=== PATIENT | female | born 1945 | race Caucasian/White ===

== ENCOUNTER → 2016-07-15 | Day surgery (SDC) | payer MEDICARE, OTHER ==
[~2016-07-15] MED LIST: ALBU0.08 NEB; AMBI10TA PO; BUDE.25I NEB; BUDE0.25 NEB; BUPIVACAINE HCL PF 0.5% 30 ML VIAL ONE; CALC1TAB12 PO; CARD180C5 PO; GABA300C5 PO; GLIM4TAB PO; GLUC15009 PO; HYDR-3535 PO; ISOS60TA PO; LOSA25TA PO; MELO-1 PO; METF1000 PO; METH500T3 PO; OMEP20TA PO; PROPOFOL 200 MG/20 ML AMP IV ONE; PROZ20CA11 PO; ROSU10 PO; TEMA15CA PO; TRIAMCINOLONE ACETONIDE 40 MG/ML VIAL I-ARTICULR ONE; VITA100018 PO; VITATAB11 PO
--- NOTE | 2016-07-19 06:15 | M6 ---
cc: KASIA SHARIF M.D. DATE: 07/15/2016 DATE OF : 1945 PROCEDURE Fluoroscopically guided injection bilateral cervical facet joints (bilateral C3-4, C4-5 and C5-6 facet joints). History and physical was completed and signed. Consent was signed. Procedure site was marked. Medications were listed and reconciled. Pain score was recorded. Allergies were noted. Time out was taken. Fluoroscopy time was recorded where applicable. Sedation was administered or directed by Dr. Sharif. The patient was given oxygen. The patient was monitored by a registered nurse. Total procedure time was greater than 15 minutes. PROCEDURE NOTE: IV was started, blood pressure cuff, pulse oximeter and EKG were applied. The patient was placed in the prone position on a Roger table sedated with small amounts of propofol titrated to effect. Vital signs were monitored and remained stable throughout the procedure. Cervical area was prepped with alcohol and 10% Betadine solution and draped with sterile drapes. Fluoroscopy was used to visualize the bilateral cervical facet joints at C3-4, C4-5 and C5-6. Separate sterile 3-1/2-inch 25-gauge spinal needles were advanced into these joints under fluoroscopic guidance. There was negative aspiration for blood or any other type of fluid. At each location the patient was given 1 mL of 0.5% Marcaine which contained 10 mg of Kenalog. Following the procedure the patient was taken to the recovery room with stable vital signs neurologically intact. She will be evaluated immediately and with followup to determine if she has a subjective decrease in her usual pain and a corresponding objective increase in her functional capabilities. W. MD DAVI Corado/MOISES /8:23 AM /6:07 AM
== END | disposition home or self-care (01) ==
LOC: PHSDC 07:11
PROVIDERS: ATTEND Pain Medicine Interventional Pain Medicine
DX: M54.2 Cervicalgia (principal)
CPT/HCPCS: 64490; 64491; 64492; 99152; J3301

== ENCOUNTER → 2016-10-15 | Day surgery (SDC) | payer MEDICARE, OTHER ==
[~2016-10-15] MED LIST changes: -BUDE0.25 NEB; +MEPERIDINE HCL 50 MG/ML VIAL ONE; +methylPREDNISolone ACETATE 40 MG/ML VIAL I-ARTICULR ONE
--- NOTE | 2016-10-19 08:37 | M6 ---
cc: KASIA SHARIF M.D. DATE 10/15/2016 DATE OF 1945 PROCEDURE Fluoroscopically guided right hip joint injection. History and physical was completed and signed. Consent was signed. Procedure site was marked. Medications were listed and reconciled. Pain score was recorded. Allergies were noted. Time out was taken. Fluoroscopy time was recorded where applicable. Sedation was administered or directed by Dr. Sharif. The patient was given oxygen. The patient was monitored by a registered nurse. Total procedure time was greater than 15 minutes. PROCEDURE NOTE IV was started. Blood pressure cuff, pulse oximeter and EKG were applied. The patient was placed in the supine position on a Roger table, sedated with small amounts of propofol titrated to effect. Vital signs were monitored and remained stable throughout the procedure. The right hip area was prepped with alcohol and 10% Betadine solution and draped with sterile drapes. Fluoroscopy was used to visualize the acetabulum. Then a 5-inch, 22-gauge spinal needle was advanced into the cephalad portion of the acetabulum under fluoroscopic guidance. There was negative aspiration for blood or any other type of fluid and at that location the patient was given 3 mL of 0.5% Marcaine, 20 mg of Depo-Medrol and 20 mg of Kenalog. Following this the patient was taken to the recovery room with stable vital signs, neurologically intact. She will be evaluated immediately and with followup to determine if she has a subjective decrease her usual pain and a corresponding increase in her activity. WMD DAVI Roth/JAVIER /10:04 AM /8:39 AM
== END | disposition home or self-care (01) ==
LOC: PHSDC 08:34
PROVIDERS: ATTEND Pain Medicine Interventional Pain Medicine
DX: M25.551 Pain in right hip (principal); Z88.0 Allergy status to penicillin
CPT/HCPCS: 20610; 99152; J1030; J2175; J3301

== ENCOUNTER 2016-12-03 14:09 | Inpatient (IN) | payer MEDICARE, OTHER ==
[~2016-12-03] VITALS: Ht 162.6 cm; Wt 98.4 kg
[~2016-12-03 14:09] MED LIST changes: -BUPIVACAINE HCL PF 0.5% 30 ML VIAL ONE; -LOSA25TA PO; -MEPERIDINE HCL 50 MG/ML VIAL ONE; -PROPOFOL 200 MG/20 ML AMP IV ONE; -TRIAMCINOLONE ACETONIDE 40 MG/ML VIAL I-ARTICULR ONE; -VITATAB11 PO; -methylPREDNISolone ACETATE 40 MG/ML VIAL I-ARTICULR ONE
[2016-12-07] MEDS ORDERED: LOSA50TA PO (09:28)
[2016-12-16] MEDS ORDERED: CHLORHEXIDINE GLUCONATE 2 % 1 PACK (2 CLOTHS) TOPICAL PRN (07:30)
[2016-12-16] MEDS ORDERED: INSULIN HUMAN REGULAR 1,000 UNITS/10 ML VIAL SQ PRN (07:30)
[2016-12-16] MEDS ORDERED: SODIUM CHLORID 0.9% 500 ML IV PRN (07:30)
[2016-12-16] MEDS ORDERED: POVIDONE IODINE 5% (ANTISEPSIS KIT) 4 APPLICATIONS EACH NARE PRN (07:30)
[2016-12-16] MEDS ORDERED: METOPROLOL TARTRATE 25 MG TAB PO PRN (07:30)
[2016-12-16] MEDS ORDERED: LACTATED RINGER'S 1000 ML IV PRN (07:30)
[2016-12-16] MEDS ORDERED: EXPAREL PERI-ARTICULAR INJECTION (TOTAL VOL. 60 ML) P-ARTICULR SCH ×2 (07:45)
[2016-12-16] MEDS ORDERED: POVIDONE IODINE 7.5% SCRUB 118 ML BOTTLE TOPICAL SCH (07:45)
[2016-12-16] MEDS ORDERED: DEXAMETHASONE SOD PHOS 20 MG/5 ML VIAL IV SCH (07:45)
[2016-12-16] MEDS ORDERED: TRANEXAMIC ACID INJ 906 MG in SODIUM CHLORIDE 0.9% INJ 100 ML IV SCH ×2 (07:45→11:45)
[2016-12-16] MEDS ORDERED: CLINDAMYCIN 900 MG/NS 100 ML IV SCH ×2 (07:45)
[2016-12-16] MEDS ORDERED: VANCOMYCIN 1000 MG/NS 250 ML (for <70 kg) IV SCH ×2 (07:45)
[2016-12-16 08:00] VITALS: BP 121/56; PULSE 97; RESP 18; TEMP 98.9; O2SAT 97
[2016-12-16] MEDS ORDERED: FAMOTIDINE 20 MG/2 ML VIAL ONE (09:25)
[2016-12-16] MEDS ORDERED: ACETAMINOPHEN 1000 MG/100 ML VIAL IV ONE (09:25)
[2016-12-16] MEDS ORDERED: MIDAZOLAM HCL 2 MG/2 ML VIAL ONE (09:32)
[2016-12-16] MEDS ORDERED: KETAMINE HCL 500 MG/5 ML VIAL ONE (09:37)
[2016-12-16] MEDS ORDERED: HYDROmorphone HCL PF 2 MG/ML VIAL ONE (09:38)
[2016-12-16] MEDS ORDERED: GENTAMICIN SULFATE 80 MG/2 ML VIAL ONE (09:41)
[2016-12-16] MEDS ORDERED: PERC10TA27 PO (11:44)
[2016-12-16] MEDS ORDERED: ENOX40P SQ (11:44)
[2016-12-16] MEDS ORDERED: ASPI325T PO (11:44)
[2016-12-16] MEDS ORDERED: ALUMINUM/MAGNESIUM/SIMETH 30 ML CUP PO PRN (11:45)
[2016-12-16] MEDS ORDERED: diphenhydrAMINE HCL 50 MG/ML VIAL IV PRN (11:45)
[2016-12-16] MEDS ORDERED: NALOXONE HCL 0.4 MG/ML AMP IV PRN (11:45)
[2016-12-16] MEDS ORDERED: RESP: ALBUTEROL 2.5 MG/3 ML NEB (PRN) NEB (11:45)
[2016-12-16] MEDS ORDERED: Post-op Orders (for Pharmacy) MISC XX ONE (11:45)
[2016-12-16] MEDS ORDERED: ZOLPIDEM TARTRATE 5 MG TAB PO PRN (11:45)
[2016-12-16] MEDS ORDERED: SODIUM CHLORIDE 0.9% FLUSH 5 ML FLUSH IVF PRN (11:45)
[2016-12-16] MEDS ORDERED: BISACODYL 10 MG SUPP RECTAL PRN (11:45)
--- NOTE | 2016-12-16 11:47 | PD.OP ---
cc: Ceasar Morfin MD Operative Report Date of Surgery: Dec 16, 2016 Preoperative Diagnosis: Right hip severe osteoarthritis Postoperative Diagnosis: Same Procedure: Right total hip arthroplasty Anesthesia: Gen. Surgeon: Ceasar Morfin Marine Electrician Apprentice(s): BRENDAN Adkins The surgical procedure was assisted by my Advanced Registered Nurse Practitioner. My CERTIFIED ADAPTED PHYSICAL EDUCATOR presence was necessary throughout this case for the manipulation and positioning of the surgical extremity. My CERTIFIED ADAPTED PHYSICAL EDUCATOR was assisting me throughout the duration of this procedure. The skill set of an Advance Registered Nurse Practitioner was medically necessary to complete this procedure. During the surgical case, the health and safety tech was working at the back table and the Advance Registered Nurse Practitioner was directly assisting me. Operation and Findings: IMPLANT DESCRIPTION: 1. [place] Gription Cup, acetabular size 48. 2. [place] AltrX polyethylene, neutral. 4. [place] femoral stem size 10, no collar, standard offset. 5. Femoral head/neck metal, 32, +1. ESTIMATED BLOOD LOSS: 150 cc. JUSTIFICATION FOR PROCEDURE: The patient has end-stage osteoarthritis to the hip. There is an attached conservative measures pathway form in the chart that describes the nonoperative measures that were undertaken prior to consideration of surgical management. The patient understood the risks and benefits of surgical management. See my office notes for further details. PROCEDURE: The patient was brought back to the operative theatre. Adequate anesthesia was obtained. The patient received intravenous clindamycin and vancomycin. The patient was carefully placed on the operative table. The lower extremity was prepped and draped in the usual sterile fashion. Fluoroscopic images were obtained. We made a standard anterior incision over the hip. We dissected through the TFL fascia, exposing the anterior capsule. Arthrotomy was performed in a T-shaped fashion. The capsule was tagged with a #2 FiberWire. End-stage arthritis was identified. Osteotomy was performed through the femoral neck exposing the acetabulum. Remnants of the labrum were resected and osteophytes were removed. We sequentially reamed the acetabulum. We trialed the hip and placed the final cup into position. This was done under fluoroscopic guidance to obtain the appropriate inclination and anteversion. A manhole cover was placed into the acetabular component. We then placed the final polyethylene into position and confirmed that it was well seated. Capsular attachments on the calcar and the inner aspect of the greater trochanter were resected. On the proximal aspect of the femur we used a rongeur , box osteotome, canal finder, sequential broaches and lateralizing rasp. We calcar planed the proximal femur. Then thoroughly irrigated the wound. We trialed the hip with the appropriate size stem. We placed the final stem in to position and trialed again. The hip was stable while it was externally rotated 70 degrees when the leg was lowered to the floor. The final head was applied, and final fluoroscopic images were obtained. The wound was thoroughly irrigated again. Interarticular injection of liposomal bupivacaine was given. The capsule was closed with #2 FiberWire and #1 Vicryl. The deep fascia was closed with a #2 Stratafix, followed by 2-0 Vicryl in the skin and lexi. Postop plan is to weight-bear as tolerated. DVT prophylaxis will be performed with SCDdheeraj, WAYNE delgado, early mobilization, and and Lovenox followed by aspirin. Ceasar Morfin MD Dec 16, 2016 11:46
[2016-12-16] MEDS ORDERED: ZOFR4TAB PO (11:48)
[2016-12-16] MEDS ORDERED: NEOSTIGMINE 3 MG/3 ML SYR IV ONE (12:00)
[2016-12-16] MEDS ORDERED: ONDANSETRON HCL 4 MG/2 ML VIAL IV PUSH ONE (12:00)
[2016-12-16] MEDS ORDERED: PROPOFOL 200 MG/20 ML AMP IV ONE (12:00)
[2016-12-16] MEDS ORDERED: ePHEDrine/NS 25 MG/5 ML SYR IV ONE (12:00)
[2016-12-16] MEDS ORDERED: PHENYLEPH/NS 1000 MCG/10 ML SYR IV ONE (12:00)
[2016-12-16] MEDS ORDERED: LACTATED RINGER'S 1000 ML INJ 1,000 ML IV ONE (12:00)
[2016-12-16] MEDS ORDERED: *RESP: ALBUTEROL 2.5 MG/3 ML NEB (PRN) PERIprocedural Use ONLY NEB ONE (12:15)
[2016-12-16] MEDS ORDERED: fentaNYL CITRATE 250 MCG/5 ML AMP ONE ×2 (12:22)
[2016-12-16] MEDS ORDERED: *morphine SULFATE 8 MG/ML PERIprocedure ONLY ONE ×3 (12:40→13:14)
[2016-12-16] MEDS ORDERED: DO NOT ADM ANY ANTICOAGULANT DRUGS PRN (12:45)
--- NOTE | 2016-12-16 12:45 | RADRPT ---
EXAM DATE/TIME: 12/16/2016 10:24 [facility] COMPARISON: No previous studies available for comparison. INDICATIONS : Right total hip arthroplasty. MEDICAL HISTORY : Hypertension. Chronic obstructive pulmonary disease. SURGICAL HISTORY : None. ENCOUNTER: Initial ACUITY: 1 day PAIN SCORE: Non-responsive. LOCATION: Right hip FINDINGS: Anatomic alignment in the AP projection on fluoroscopic spot film. CONCLUSION: Anatomic alignment Adam Vásquez MD FACR on December 16, 2016 at 12:43 Board Certified Radiologist. This report was verified electronically.
[2016-12-16] MEDS: SODIUM CHLOR 0.9% 1000 ML INJ 1,000 ML IV SCH ×2 (12:55→21:40)
[2016-12-16] MEDS ORDERED: GLUCAGON 1 MG/ML VIAL OTHER PRN (13:00)
[2016-12-16] MEDS ORDERED: DEXTROSE 50% IN WATER 50 ML VIAL(D50) IV PRN (13:00)
--- NOTE | 2016-12-16 13:13 | RADRPT ---
EXAM DATE/TIME: 12/16/2016 12:27 [facility] COMPARISON: No previous studies available for comparison. INDICATIONS : Post-op total right hip arthroplasty. MEDICAL HISTORY : Diabetes mellitus type II. SURGICAL HISTORY : None. ENCOUNTER: Initial ACUITY: 1 day PAIN SCORE: 10/10 LOCATION: Right hip. FINDINGS: The patient is status post a total hip arthroplasty with a bipolar prosthesis. Prosthesis is well-sea deena. Alignment is anatomic. A fracture is not appreciated. CONCLUSION: Anatomic alignment. Adam Vásquez MD FACR Board Certified Radiologist. This report was verified electronically.
--- NOTE | 2016-12-16 13:14 | RADRPT ---
EXAM DATE/TIME: 12/16/2016 12:26 [facility] COMPARISON: CHEST PA & LAT, December 07, 2016, 11:31. INDICATIONS : Evaluate for aspiration. MEDICAL HISTORY : Diabetes mellitus type II. SURGICAL HISTORY : None. ENCOUNTER: Initial ACUITY: 1 day PAIN SCORE: 0/10 LOCATION: chest FINDINGS: The lungs are under aerated without other consolidation, congestive failure or pleural effusion. The portion of the bony skeleton visualized is unremarkable. CONCLUSION: Unaerated otherwise negative. Adam Vásquez MD FACR on December 16, 2016 at 13:12 Board Certified Radiologist. This report was verified electronically.
[2016-12-16] MEDS ORDERED: *HYDROmorphone PF 1 MG VIAL PERIprocedural Use ONLY ONE ×2 (13:34→14:19)
--- NOTE | 2016-12-16 14:13 | HHI.DCPOC ---
Discharge Care Plan Diagnosis: (1) Osteoarthritis of right hip (2) Status post total hip replacement, right Your Health Problems Are: Difficulty with ADL Goals to Promote Your Health * To prevent worsening of your condition and complications * To maintain your health at the optimal level Directions to Meet Your Goals Take your medications as prescribed Follow your dietary instruction Follow activity as directed Keep your appointments as scheduled Take your immunizations and boosters as scheduled If your symptoms worsen call your PCP, if no PCP go to Urgent Care Center or Emergency Room Smoking is Dangerous to Your Health. Avoid second hand smoke Call the 24-hour hour crisis hotline for domestic abuse at Esteban Simons Dec 16, 2016 14:13
--- NOTE | 2016-12-16 14:14 | HHI.FF ---
Face to Face Verification Diagnosis: (1) Osteoarthritis of right hip (2) Status post total hip replacement, right Physical Therapy Gait training, Transfer training, bed to chair Hip: Total hip Right LE Weight Bearing: WB as tolerated Right LE Range of Motion: Active ROM Nursing Nursing: Miriam teaching, Dressing changes Dressing Changes: Daily dressing change I have seen patient Nimisha Ulloa on 12/16/16. My clinical findings support the need for the requested home health care services because: Limited ability to care for self High risk of falls I certify that my clinical findings support that this patient is homebound because: Post-op weakness Unsteady gait/balance Esteban Simons Dec 16, 2016 14:14
[2016-12-16] MEDS ORDERED: WALKER WHEELS/F1 MIS (14:15)
[2016-12-16] MEDS ORDERED: COMMODE 3-IN-11 MIS (14:15)
[2016-12-16] MEDS ORDERED: PANTOPRAZOLE SOD 20 MG DELAYED RELEASE TAB PO PRN (15:00)
[2016-12-16] MEDS: ONDANSETRON HCL 4 MG/2 ML VIAL IVP PRN (15:05)
--- NOTE | 2016-12-16 16:05 | PD.CONS ---
HPI Service [facility] Consult Requested By Dr. Ceasar Morfin Reason for Consult Medical management Primary Care Physician Tawanna Davis Diagnoses: History of Present Illness Written by Heena Pinto PA-C acting as scribe for Dr. Esteban on 12/16/16 at 15:42. This is a 71-year-old female presenting with chronic right hip pain affecting her activities of daily living. She has osteoarthritis and failed attempts at outpatient therapy and underwent a right total hip replacement performed by Dr. Morfin who requested consultation to evaluate and manage multiple medical conditions. Anesthesia records reviewed. Patient is hemodynamically stable. Patient was cleared preoperatively by cardiology, pulmonology and medicine. Patient has history of coronary artery disease and undergone a previous cardiac stent placement. Additionally, patient gives a history of COPD but denies any previous hospitalizations due to exacerbations. She denies using oxygen at home. She has hypertension which is controlled with a single agent. She has dyslipidemia and diabetes. She also has a history of restless leg syndrome takes gabapentin. Patient had a recent echocardiogram done 12/04/16 which revealed normal systolic function with EF of 55-60%. She also underwent a myocardial perfusion study on 12/04/16 which showed a fixed defect and no reversible ischemia. Preoperatively she was noted to have some mild leukocytosis. She is a history of chronic pain for which she takes Narco daily. In PACU, noted to have emesis with tightness and wheezing. She underwent a breathing treatment and had a stat chest x-ray which was unremarkable per report. At present, patient has no recollection of vomiting. She denies any complaints of breathing difficulties. She denies any history of swallowing abnormalities. She complains of "feeling woozy" as well as right hip pain. Following surgery, her blood sugar was 247. All other systems are reviewed and are negative. Review of Systems Except as stated in HPI: all other systems reviewed are Neg Past Family Social History Allergies: Coded Allergies: penicillin G (Unverified Allergy, Severe, Anaphylaxis, 12/16/16) swelling hives Past Medical History Osteoarthritis CAD Hypertension Diabetes COPD Dyslipidemia Restless leg syndrome Depression Chronic narcotic use GERD Past Surgical History Cardiac stent Cataract surgery Tonsillectomy Appendectomy Cholecystectomy Back surgery Bilateral tubal ligation Reported Medications Losartan 50 mg daily Gabapentin 300 mg by mouth daily at bedtime Prozac 20 mg daily Ambien 10 mg by mouth daily at bedtime when necessary Temazepam 15 mg by mouth daily at bedtime when necessary Nebulizer treatments as needed Metformin thousand grams by mouth twice a day Diltiazem 180 mg by mouth daily Methocarbamol 500 mg by mouth daily Pulmicort 0.25 mg neb treatments daily Crestor 10 mg by mouth daily at bedtime Isosorbide 60 mg by mouth daily at bedtime Mobic 15 mg by mouth daily Lortab tens 325 mg 1 by mouth every 6 hours as needed Omeprazole 20 mg daily Glimepiride 4 mg by mouth twice a day Vitamin D 3000 units by mouth daily Active Ordered Medications Current Medications Medications (Trade) Dose Ordered Sig/Elysia Route Start Time Stop Time Status Last Admin Povidone Iodine 1 applic 1 applic ONCE TOPICAL 12/16/16 07:45 12/19/16 07:44 Tranexamic Acid 906 mg/Sodium Chloride 109.06 ml @ 200 mls/ hr ONCE IV 12/16/16 07:45 12/17/16 07:44 12/16/16 10:15 (Exparel Pf 1.3% Inj/NS Inj) 60 ml @ 120 mls/hr ONCE P-ARTICULR 12/16/16 07:45 12/17/16 07:44 12/16/16 10:44 (Cardizem Cd) 180 mg DAILY PO 12/17/16 09:00 (PROzac) 20 mg DAILY PO 12/17/16 09:00 (Neurontin) 300 mg HS PO 12/16/16 21:00 (Amaryl) 4 mg BIDAC PO 12/16/16 16:00 (Imdur) 60 mg HS PO 12/16/16 21:00 (Cozaar) 50 mg DAILY PO 12/17/16 09:00 (Glucophage) 1,000 mg BIDPC PO 12/16/16 18:00 (Robaxin) 500 mg DAILY PO 12/17/16 09:00 (Restoril) 15 mg HS PRN PO 12/16/16 21:00 (Ambien) 10 mg HS PRN PO 12/16/16 21:00 (Protonix) 20 mg DAILY PRN PO 12/16/16 15:00 Atorvastatin Calcium 20 mg 20 mg HS PO 12/16/16 21:00 (NS 1000 ml Inj) 1,000 ml @ 100 mls/hr Q10H IV 12/16/16 11:40 8/16/17 12:55 (NS Flush) 2 ml UNSCH PRN IVF 12/16/16 11:45 IV Flush 2 ml 2 ml BID IVF 12/16/16 21:00 (Cleocin Inj/NS Inj) 106 ml @ 212 mls/hr Q8H IV 12/16/16 17:00 12/17/16 09:29 (Decadron Inj) 10 mg ONCE ONCE IV 12/17/16 07:45 12/17/16 07:46 (Lovenox Inj) 40 mg Q24H SQ 12/17/16 11:00 12/26/16 11:01 (Theragran M Tab) 1 tab BID PO 12/17/16 21:00 02/15/17 20:59 (Zofran Inj) 4 mg Q6H PRN IVP 12/16/16 11:45 12/16/16 15:05 (Colace) 100 mg BID PO 12/17/16 21:00 (Mag-Al Plus Susp Liq) 30 ml Q6H PRN PO 12/16/16 11:45 (Dulcolax Supp) 10 mg DAILY PRN RECTAL 12/16/16 11:45 (Milk Of Magnesia Liq) 30 ml DAILY PRN PO 12/16/16 11:45 (Narcan Inj) 0.4 mg UNSCH PRN IV 12/16/16 11:45 (Benadryl Inj) 25 mg Q6H PRN IV 12/16/16 11:45 (Morphine Inj) 2 mg Q3H PRN IV PUSH 12/16/16 11:45 (Percocet 10-325 Mg) 1 tab Q4H PRN PO 12/16/16 11:45 (Percocet 10-325 Mg) 2 tab Q4H PRN PO 12/16/16 11:45 Miscellaneous Information ALL NURSING DEPARTME... UNSCH PRN .XX 12/16/16 12:45 12/17/16 12:44 (D50w (Vial) Inj) 50 ml UNSCH PRN IV 12/16/16 13:00 (Glucagon Inj) 1 mg UNSCH PRN OTHER 12/16/16 13:00 Family History Heart disease Social History Patient has a [id number]-ganm history. Denies any alcohol use. Physical Exam Vital Signs Vital Signs Date Time Temp Pulse Resp B/P Pulse Ox O2 Delivery O2 Flow Rate FiO2 12/16/16 08:00 98.9 97 18 121/56 97 Physical Exam GENERAL: This is a well-nourished, well-developed patient, in no apparent distress. Awake and alert. SKIN: No rashes, ecchymoses or lesions. Cool and dry. HEAD: Atraumatic. Normocephalic. No temporal or scalp tenderness. EYES: Pupils equal round and reactive. Extraocular motions intact. No scleral icterus. No injection or drainage. ENT: Nose without bleeding or purulent drainage. Throat without erythema, tonsillar hypertrophy or exudate. Uvula midline. Airway patent. NECK: Trachea midline. No lymphadenopathy. Supple, nontender, no meningeal signs. CARDIOVASCULAR: Regular rate and rhythm without murmurs, gallops, or rubs. RESPIRATORY: Decreased breath sounds but clear to auscultation. No wheezes, rales, or rhonchi. GASTROINTESTINAL: Abdomen soft, non-tender, nondistended. No hepato-splenomegaly , or palpable masses. No guarding. MUSCULOSKELETAL: Extremities without clubbing, cyanosis, or edema. NEUROLOGICAL: Awake and alert. Able to move all extremities. Motor and sensory grossly intact distally. Normal speech. Laboratory Laboratory Tests Test 12/16/16 08:04 Blood Type O NEGATIVE Antibody Screen NEGATIVE Blood Bank Comment Imaging Last Impressions Hip and Pelvis X-Ray 12/16/16 1140 Signed Impressions: Service Date/Time: Friday, December 16, 2016 12:27 - CONCLUSION: Anatomic alignment. Adam Vásquez MD Hip X-Ray 12/16/16 0000 Signed Impressions: Service Date/Time: Friday, December 16, 2016 10:24 - CONCLUSION: Anatomic alignment Adam Vásquez MD FACR Chest X-Ray 12/16/16 0000 Signed Impressions: Service Date/Time: Friday, December 16, 2016 12:26 - CONCLUSION: Unaerated otherwise negative. Adam Vásquez MD FACR Assessment and Plan Assessment and Plan 71-year-old female presenting with chronic right hip pain affecting her activities of daily living. She has osteoarthritis and failed attempts at outpatient therapy and underwent a right total hip replacement performed by Dr. Morfin who requested consultation to evaluate and manage multiple medical conditions. Anesthesia records reviewed. Patient is hemodynamically stable. In PACU, patient had an emesis as well as wheezing and chest tightness. She was treated with a breathing treatment and stat chest x-ray was obtained which was unremarkable. We will continue postoperative care to include physical therapy, wound care, incentive spirometry, DVT prophylaxis with Lovenox ( followed by aspirin 325 mg) and pain management with Percocet and IV morphine. Osteoarthritis of the right hip failed outpatient therapy status post right total hip replacement Pain management with Percocet and IV morphine PT eval/tx Hypertension. Stable Resume patient's home dose of diltiazem 180 mg daily, Cozaar 50 mg daily and Imdur 60mg daily Monitor BP CAD. Stable Previous cardiac stent implantation 12/04/16 echocardiogram revealing normal systolic function with EF of 55-60% and myocardial perfusion study showing fixed defect with no reversible ischemia No complaints of chest pain at this time Will resume patient's aspirin once cleared by surgery Diabetes mellitus Resume patient's home medication of metformin 1000 milligrams twice a day and Amaryl 4mg BID Accu-Chek Insulin sliding scale Diabetic diet COPD. Stable Resume patient's home dose of Pulmicort neb daily Monitor respiratory status Dyslipidemia Resume patient's home dose of Lipitor 20 mg nightly Restless leg syndrome Resume patient's home dose of gabapentin 300 mg daily Depression Resume patient's home dose of Prozac 20 mg daily GERD Resume patient's home dose of Omeprazole 20 mg daily DVT prophylaxis Lovenox 40 mg subcutaneous. Patient is to begin aspirin 325 mg daily after Lovenox is completed. Discussed Condition With Patient and nursing staff This note was transcribed by eleonora Pinto PA-C . I, Dr. Jimmy Esteban personally performed the history, physical exam, and medical decision making; and confirmed the accuracy of the information in the transcribed note. Authenticated by Dr. Jimmy Esteban on 12/16/16 at 15:46 Heena Pinto Dec 16, 2016 16:05 Jimmy Esteban MD Dec 16, 2016 17:43
[2016-12-16] MEDS: INSULIN ASPART SUPPLEMENTAL SCALE SQ SCH ×2 (16:55→21:00)
[2016-12-16] MEDS: oxyCODONE/ACETAMINOPHEN 10 MG/325 MG TAB PO PRN (17:20)
[2016-12-16] MEDS: MORPHINE SULFATE 4 MG/ML INJ IV PUSH PRN (17:20)
[2016-12-16] MEDS: CLINDAMYCIN INJ 900 MG in SODIUM CHLORIDE 0.9% INJ 100 ML IV SCH (17:30)
[2016-12-16 20:15] VITALS: BP 106/67; PULSE 102; RESP 18; TEMP 98.2; O2SAT 96
[2016-12-16] MEDS: SODIUM CHLORIDE 0.9% FLUSH 5 ML FLUSH IVF SCH (21:00)
[2016-12-16] MEDS: ATORVASTATIN 20 MG TAB PO SCH (21:02)
[2016-12-16] MEDS: ISOSORBIDE MONONITRATE 60 MG TAB PO SCH (21:02)
[2016-12-16] MEDS: metFORMIN HCL 500 MG TAB PO SCH (21:02)
[2016-12-16] MEDS: GABAPENTIN 300 MG CAP PO SCH (21:02)
[2016-12-16] MEDS: TEMAZEPAM 15 MG CAP PO PRN (21:32)
[2016-12-16] MEDS: ZOLPIDEM TARTRATE 10 MG TAB PO PRN (21:32)
[2016-12-17] VITALS (7 sets, daily range): BP systolic 101–142; BP diastolic 60–74; PULSE 96–110; RESP 17–18; TEMP 96.7–98.3; O2SAT 92–98
[2016-12-17] MEDS: CLINDAMYCIN INJ 900 MG in SODIUM CHLORIDE 0.9% INJ 100 ML IV SCH ×2 (00:51→08:45)
[2016-12-17] MEDS: oxyCODONE/ACETAMINOPHEN 10 MG/325 MG TAB PO PRN ×3 (03:22→14:00)
[2016-12-17] MEDS: MORPHINE SULFATE 4 MG/ML INJ IV PUSH PRN ×3 (05:35→19:52)
[2016-12-17] MEDS: INSULIN ASPART SUPPLEMENTAL SCALE SQ SCH ×4 (07:00→20:05)
[2016-12-17 07:40] LABS: HEMATOCRIT 32.4 % (35.0-46.0); MEAN CELL VOLUME 81.4 FL (80.0-100.0); MEAN CORPUSCULAR HEMOGLOBIN 25.7 PG (27.0-34.0); MEAN CORPUSCULAR HGB CONC 31.6 % (32.0-36.0); PLATELET COUNT 326 TH/MM3 (150-450); RED BLOOD COUNT 3.98 MIL/MM3 (4.00-5.30); RED CELL DISTRIBUTION WIDTH 16.6 % (11.6-17.2); REVIEW FLAG FINAL
[2016-12-17] MEDS: SODIUM CHLOR 0.9% 1000 ML INJ 1,000 ML IV SCH ×2 (07:40→17:40)
[2016-12-17] MEDS ORDERED: DEXAMETHASONE SOD PHOS 20 MG/5 ML VIAL IV ONE (07:45)
[2016-12-17] MEDS: RESP: BUDESONIDE 0.25 MG/2 ML NEB NEB SCH (08:00)
[2016-12-17] MEDS: FLUoxetine HCL 20 MG CAP PO SCH (08:44)
[2016-12-17] MEDS: METHOCARBAMOL 500 MG TAB PO SCH (08:44)
[2016-12-17] MEDS: DILTIAZEM-CD 180 MG CAP ER PO SCH (08:44)
[2016-12-17] MEDS: LOSARTAN 50 MG TAB PO SCH (08:44)
[2016-12-17] MEDS: GLIMEPIRIDE 4 MG TAB PO SCH ×2 (08:45→17:04)
[2016-12-17] MEDS: metFORMIN HCL 500 MG TAB PO SCH ×2 (08:45→17:04)
[2016-12-17] MEDS: SODIUM CHLORIDE 0.9% FLUSH 5 ML FLUSH IVF SCH ×2 (08:45→20:04)
[2016-12-17] MEDS: ENOXAPARIN SODIUM 40 MG/0.4 ML SYRINGE SQ SCH (11:38)
--- NOTE | 2016-12-17 11:53 | PD.ORT.PN ---
Subjective Post Op Day #: 1 Subjective Remarks The patient is OOB in chair but is having a difficult time transferring and ambulating. Patient's Silverio is out but she has not voided. Objective Vitals Vital Signs Date Time Temp Pulse Resp B/P Pulse Ox O2 Delivery O2 Flow Rate FiO2 12/17/16 07:21 96.7 99 18 117/74 98 12/17/16 04:09 97.0 96 18 120/68 98 12/17/16 00:15 97.4 100 18 102/65 98 12/16/16 20:15 98.2 102 18 106/67 96 12/16/16 18:00 98.3 107 14 102/53 95 Nasal Cannula 3 12/16/16 17:00 112 22 115/67 94 Nasal Cannula 3 12/16/16 16:00 112 22 109/56 94 Nasal Cannula 3 12/16/16 15:00 114 13 109/56 95 Nasal Cannula 3 12/16/16 14:00 114 14 110/53 94 Nasal Cannula 3 12/16/16 13:30 111 14 110/57 93 Nasal Cannula 3 12/16/16 13:15 110 21 120/57 94 Nasal Cannula 3 12/16/16 13:00 110 28 150/63 95 Nasal Cannula 3 12/16/16 12:45 110 24 130/90 98 Nasal Cannula 3 12/16/16 12:30 114 29 175/77 97 Simple Mask 6 12/16/16 12:15 100 16 141/67 92 Simple Mask 6 12/16/16 12:07 98.3 93 16 140/71 93 Simple Mask 6 I/O 12/16/16 12/16/16 12/16/16 12/17/16 12/17/16 12/17/16 07:00 15:00 23:00 07:00 15:00 23:00 Intake Total 1100 ml 954 ml 970 ml Output Total 400 ml 450 ml 300 ml Balance 700 ml 504 ml 670 ml Intake Oral 340 ml 120 ml IV Total 614 ml 850 ml Other 1100 ml Output Urine Total 200 ml 450 ml 300 ml Estimated Blood Loss 200 ml # Bowel Movements 0 0 Result Diagram: 12/17/16 0615 Imaging Last 24 hours Impressions Hip and Pelvis X-Ray 12/16/16 1140 Signed Impressions: Service Date/Time: Friday, December 16, 2016 12:27 - CONCLUSION: Anatomic alignment. Adam Vásquez MD Procedures Right SANDIP Objective Remarks Dressing changed today with no drainage. Incision is well approximated. No redness or s/s of infection. EHL/TA/G intact. 2+ pedal pulse. No calf swelling or tenderness. + SILT. Assessment & Plan Ortho Post Op Day #: 1 Problem List: Assessment and Plan POD #1: Right SANDIP 1. WBAT RLE 2. Lovenox followed by ASA for DVT prophylaxis 3. Ice to the right hip PRN 4. Anticipatory discharge home with home health on Wednesday or Wednesday. 5. F/U with Dr. Morfin or BRENDAN Mosley in the office as previously scheduled. Esteban Simons Dec 17, 2016 11:53
--- NOTE | 2016-12-17 13:05 | HHI.PR ---
Subjective Remarks Follow-up on patient with osteoarthritis status post right total hip replacement. Patient seen and examined today. Patient reports she is doing well overall. Pain is controlled at present. She denies any fever or chills. She denies any nausea, vomiting or abdominal pain. Denies chest pain or shortness of breath. Objective Vitals Vital Signs Date Time Temp Pulse Resp B/P Pulse Ox O2 Delivery O2 Flow Rate FiO2 12/17/16 11:40 96.8 102 18 101/60 94 12/17/16 07:21 96.7 99 18 117/74 98 12/17/16 04:09 97.0 96 18 120/68 98 12/17/16 00:15 97.4 100 18 102/65 98 12/16/16 20:15 98.2 102 18 106/67 96 12/16/16 18:00 98.3 107 14 102/53 95 Nasal Cannula 3 12/16/16 17:00 112 22 115/67 94 Nasal Cannula 3 12/16/16 16:00 112 22 109/56 94 Nasal Cannula 3 12/16/16 15:00 114 13 109/56 95 Nasal Cannula 3 12/16/16 14:00 114 14 110/53 94 Nasal Cannula 3 12/16/16 13:30 111 14 110/57 93 Nasal Cannula 3 12/16/16 13:15 110 21 120/57 94 Nasal Cannula 3 12/16/16 13:00 110 28 150/63 95 Nasal Cannula 3 I/O 12/16/16 12/16/16 12/16/16 12/17/16 12/17/16 12/17/16 07:00 15:00 23:00 07:00 15:00 23:00 Intake Total 1100 ml 954 ml 970 ml Output Total 400 ml 450 ml 300 ml Balance 700 ml 504 ml 670 ml Intake Oral 340 ml 120 ml IV Total 614 ml 850 ml Other 1100 ml Output Urine Total 200 ml 450 ml 300 ml Estimated Blood Loss 200 ml # Bowel Movements 0 0 Result Diagram: 12/17/16 0615 Imaging Last Impressions Hip and Pelvis X-Ray 12/16/16 1140 Signed Impressions: Service Date/Time: Friday, December 16, 2016 12:27 - CONCLUSION: Anatomic alignment. Adam Vásquez MD Hip X-Ray 12/16/16 0000 Signed Impressions: Service Date/Time: Friday, December 16, 2016 10:24 - CONCLUSION: Anatomic alignment Adam Vásquez MD FACR Chest X-Ray 12/16/16 0000 Signed Impressions: Service Date/Time: Friday, December 16, 2016 12:26 - CONCLUSION: Unaerated otherwise negative. Adam Vásquez MD FACR Objective Remarks GENERAL: This is a well-nourished, well-developed patient, in no apparent distress. Awake and alert. Sitting in bedside chair. SKIN: No rashes, ecchymoses or lesions. Cool and dry. HEAD: Atraumatic. Normocephalic. EYES: Extraocular motions intact. No scleral icterus. No injection or drainage. ENT: Nose without bleeding or purulent drainage. Airway patent. NECK: Trachea midline. Supple. CARDIOVASCULAR: Regular rate and rhythm without murmurs, gallops, or rubs. RESPIRATORY: Decreased breath sounds but clear to auscultation. No wheezes, rales, or rhonchi. GASTROINTESTINAL: Abdomen soft, non-tender, nondistended. No hepato-splenomegaly , or palpable masses. No guarding. MUSCULOSKELETAL: Extremities without clubbing, cyanosis, or edema. Right hip postoperative dressing clean, dry and intact. NEUROLOGICAL: Awake and alert. Able to move all extremities. Motor and sensory grossly intact distally. Normal speech. Medications and IVs Current Medications Medications (Trade) Dose Ordered Sig/E[facility] Route Start Time Stop Time Status Last Admin (Betadine 7.5% Scrub) 1 applic ONCE TOPICAL 12/16/16 07:45 12/19/16 07:44 (Cardizem Cd) 180 mg DAILY PO 12/17/16 09:00 12/17/16 08:44 (PROzac) 20 mg DAILY PO 12/17/16 09:00 12/17/16 08:44 (Neurontin) 300 mg HS PO 12/16/16 21:00 12/16/16 21:02 (Amaryl) 4 mg BIDAC PO 12/16/16 16:00 12/17/16 08:45 (Imdur) 60 mg HS PO 12/16/16 21:00 12/16/16 21:02 (Cozaar) 50 mg DAILY PO 12/17/16 09:00 12/17/16 08:44 (Glucophage) 1,000 mg BIDPC PO 12/16/16 18:00 12/17/16 08:45 (Robaxin) 500 mg DAILY PO 12/17/16 09:00 12/17/16 08:44 (Restoril) 15 mg HS PRN PO 12/16/16 21:00 12/16/16 21:32 (Ambien) 10 mg HS PRN PO 12/16/16 21:00 12/16/16 21:32 (Protonix) 20 mg DAILY PRN PO 12/16/16 15:00 Atorvastatin Calcium 20 mg 20 mg HS PO 12/16/16 21:00 12/16/16 21:02 (NS 1000 ml Inj) 1,000 ml @ 100 mls/hr Q10H IV 12/16/16 11:40 12/16/16 21:40 (NS Flush) 2 ml UNSCH PRN IVF 12/16/16 11:45 (NS Flush) 2 ml BID IVF 12/16/16 21:00 12/17/16 08:45 (Lovenox Inj) 40 mg Q24H SQ 12/17/16 11:00 12/26/16 11:01 12/17/16 11:38 (Theragran M Tab) 1 tab BID PO 12/17/16 21:00 02/15/17 20:59 (Zofran Inj) 4 mg Q6H PRN IVP 12/16/16 11:45 12/16/16 15:05 (Colace) 100 mg BID PO 12/17/16 21:00 (Mag-Al Plus Susp Liq) 30 ml Q6H PRN PO 12/16/16 11:45 (Dulcolax Supp) 10 mg DAILY PRN RECTAL 12/16/16 11:45 (Milk Of Magnesia Liq) 30 ml DAILY PRN PO 12/16/16 11:45 (Narcan Inj) 0.4 mg UNSCH PRN IV 12/16/16 11:45 (Benadryl Inj) 25 mg Q6H PRN IV 12/16/16 11:45 (Morphine Inj) 2 mg Q3H PRN IV PUSH 12/16/16 11:45 12/17/16 05:35 (Percocet 10-325 Mg) 1 tab Q4H PRN PO 12/16/16 11:45 12/17/16 08:55 (Percocet 10-325 Mg) 2 tab Q4H PRN PO 12/16/16 11:45 12/16/16 17:20 (D50w (Vial) Inj) 50 ml UNSCH PRN IV 12/16/16 13:00 (Glucagon Inj) 1 mg UNSCH PRN OTHER 12/16/16 13:00 A/P Assessment and Plan 71-year-old female presenting with chronic right hip pain affecting her activities of daily living. She has osteoarthritis and failed attempts at outpatient therapy and underwent a right total hip replacement performed by Dr. Morfin who requested consultation to evaluate and manage multiple medical conditions. Anesthesia records reviewed. Patient is hemodynamically stable. In PACU, patient had an emesis as well as wheezing and chest tightness. She was treated with a breathing treatment and stat chest x-ray was obtained which was unremarkable. We will continue postoperative care to include physical therapy, wound care, incentive spirometry, DVT prophylaxis with Lovenox ( followed by aspirin 325 mg) and pain management with Percocet and IV morphine. Osteoarthritis of the right hip failed outpatient therapy status post right total hip replacement Pain management with Percocet and IV morphine Continue with PT/eval Silverio discontinued just prior to me entering the room Leukocytosis Suspect reactive Patient is afebrile A.m. labs to monitor trend Postoperative anemia of acute blood loss Hemoglobin 10.2 A.m. labs to monitor trend Hypertension. Stable Tachycardia Continue patient's home dose of diltiazem 180 mg daily, Cozaar 50 mg daily and Imdur 60mg daily Monitor vital signs CAD. Stable Previous cardiac stent implantation 12/04/16 echocardiogram revealing normal systolic function with EF of 55-60% and myocardial perfusion study showing fixed defect with no reversible ischemia No complaints of chest pain at this time Will resume patient's aspirin once cleared by surgery Diabetes mellitus Continue patient's home medication of metformin 1000 milligrams twice a day and Amaryl 4mg BID Accu-Chek Insulin sliding scale Diabetic diet COPD. Stable Continue patient's home dose of Pulmicort neb daily Monitor respiratory status Dyslipidemia Continue patient's home dose of Lipitor 20 mg nightly Restless leg syndrome Continue patient's home dose of gabapentin 300 mg daily Depression Continue patient's home dose of Prozac 20 mg daily GERD Continue patient's home dose of Omeprazole 20 mg daily DVT prophylaxis Lovenox 40 mg subcutaneous. Patient is to begin aspirin 325 mg daily after Lovenox is completed. Discussed with patient and Heena Earl Dec 17, 2016 13:05
[2016-12-17] MEDS: ISOSORBIDE MONONITRATE 60 MG TAB PO SCH (22:03)
[2016-12-17] MEDS: MULTIVITAMINS/MINERALS THERAPEUTIC TAB PO SCH (22:03)
[2016-12-17] MEDS: ZOLPIDEM TARTRATE 10 MG TAB PO PRN (22:03)
[2016-12-17] MEDS: ATORVASTATIN 20 MG TAB PO SCH (22:04)
[2016-12-17] MEDS: DOCUSATE SODIUM 100 MG CAP PO SCH (22:04)
[2016-12-17] MEDS: GABAPENTIN 300 MG CAP PO SCH (22:04)
[2016-12-18] VITALS (7 sets, daily range): BP systolic 114–138; BP diastolic 55–76; PULSE 86–100; RESP 17–20; TEMP 96.7–97.3; O2SAT 93–98
[2016-12-18] MEDS: TEMAZEPAM 15 MG CAP PO PRN (00:07)
[2016-12-18] MEDS: oxyCODONE/ACETAMINOPHEN 10 MG/325 MG TAB PO PRN ×5 (00:08→23:26)
[2016-12-18] MEDS: SODIUM CHLOR 0.9% 1000 ML INJ 1,000 ML IV SCH ×3 (02:23→21:19)
[2016-12-18] MEDS: INSULIN ASPART SUPPLEMENTAL SCALE SQ SCH ×4 (07:00→21:15)
[2016-12-18 08:08] LABS: AUTOMATED NEUTROPHIL # 12.8 TH/MM3 (1.8-7.7); BASOPHIL % 0.1 % (0.0-2.0); EOSINOPHIL % 0.1 % (0.0-4.0); HEMATOCRIT 32.2 % (35.0-46.0); HEMO FLAGS DIFF FINAL; LYMPH % 7.7 % (9.0-44.0); LYMPHOCYTE # 1.2 TH/MM3 (1.0-4.8); MEAN CELL VOLUME 79.8 FL (80.0-100.0); MEAN CORPUSCULAR HGB CONC 32.6 % (32.0-36.0); MONO % 8.4 % (0.0-8.0); NEUT % 83.7 % (16.0-70.0); PLATELET COUNT 369 TH/MM3 (150-450); RED BLOOD COUNT 4.03 MIL/MM3 (4.00-5.30); RED CELL DISTRIBUTION WIDTH 16.7 % (11.6-17.2); WHITE BLOOD COUNT 15.2 TH/MM3 (4.0-11.0)
[2016-12-18] MEDS: DOCUSATE SODIUM 100 MG CAP PO SCH (08:11)
[2016-12-18] MEDS: DILTIAZEM-CD 180 MG CAP ER PO SCH (08:11)
[2016-12-18] MEDS: metFORMIN HCL 500 MG TAB PO SCH ×2 (08:11→17:17)
[2016-12-18] MEDS: MULTIVITAMINS/MINERALS THERAPEUTIC TAB PO SCH ×2 (08:12→21:12)
[2016-12-18] MEDS: GLIMEPIRIDE 4 MG TAB PO SCH ×2 (08:12→17:17)
[2016-12-18] MEDS: FLUoxetine HCL 20 MG CAP PO SCH (08:12)
[2016-12-18] MEDS: LOSARTAN 50 MG TAB PO SCH (08:12)
[2016-12-18] MEDS: MAGNESIUM HYDROXIDE SUSP 30 ML CUP PO PRN (08:13)
[2016-12-18 08:21] LABS: BICARBONATE 27.6 MEQ/L (21.0-32.0); MAGNESIUM 1.8 MG/DL (1.5-2.5)
[2016-12-18] MEDS: SODIUM CHLORIDE 0.9% FLUSH 5 ML FLUSH IVF SCH ×2 (09:00→21:00)
[2016-12-18] MEDS ORDERED: POLYETHYLENE GLYCOL 17 GM PKG PO ONE (09:45)
[2016-12-18] MEDS: METHOCARBAMOL 500 MG TAB PO SCH (09:46)
[2016-12-18] MEDS: LIDOCAINE HCL 5% PATCH T-DERMAL SCH (09:47)
[2016-12-18] MEDS: ENOXAPARIN SODIUM 40 MG/0.4 ML SYRINGE SQ SCH (09:48)
--- NOTE | 2016-12-18 09:54 | HHI.PR ---
Subjective Remarks Follow-up on patient with osteoarthritis status post right total hip replacement. Patient seen and examined today. Patient complaining of burning pain in right hip and leg. Reports pain medication works but doesn't last very long. Patients last dose of pain medication was at midnight. Denies any fever or chills. Denies any chest pain or SOB. Denies any N/V or abdominal pain. No BM as of yet. Objective Vitals Vital Signs Date Time Temp Pulse Resp B/P Pulse Ox O2 Delivery O2 Flow Rate FiO2 12/18/16 09:21 16 12/18/16 08:10 96.7 95 20 138/76 98 12/18/16 02:22 Room Air 12/18/16 00:16 97.3 100 17 127/68 96 12/17/16 20:15 98.3 110 17 142/71 95 12/17/16 19:57 18 12/17/16 16:00 97.7 100 18 119/61 96 12/17/16 14:24 92 21 12/17/16 11:40 96.8 102 18 101/60 94 I/O 12/17/16 12/17/16 12/17/16 12/18/16 12/18/16 12/18/16 07:00 15:00 23:00 07:00 15:00 23:00 Intake Total 970 ml 600 ml 360 ml 120 ml Output Total 300 ml Balance 670 ml 600 ml 360 ml 120 ml Intake Oral 120 ml 600 ml 360 ml 120 ml IV Total 850 ml Output Urine Total 300 ml # Voids 4 2 1 # Bowel Movements 0 0 0 0 Result Diagram: 12/18/16 0704 12/18/16 0704 Imaging Last Impressions Hip and Pelvis X-Ray 12/16/16 1140 Signed Impressions: Service Date/Time: Friday, December 16, 2016 12:27 - CONCLUSION: Anatomic alignment. Adam Vásquez MD Hip X-Ray 12/16/16 0000 Signed Impressions: Service Date/Time: Friday, December 16, 2016 10:24 - CONCLUSION: Anatomic alignment Adam Vásquez MD FACR Chest X-Ray 12/16/16 0000 Signed Impressions: Service Date/Time: Friday, December 16, 2016 12:26 - CONCLUSION: Unaerated otherwise negative. Adam Vásquez MD FACR Objective Remarks GENERAL: This is a well-nourished, well-developed patient, in no apparent distress. Sitting in bedside chair. Awake and alert. SKIN: Checks appear flushed. Cool and dry. HEAD: Atraumatic. Normocephalic. EYES: Extraocular motions intact. No scleral icterus. No injection or drainage. ENT: Nose without bleeding or purulent drainage. Airway patent. NECK: Trachea midline. Supple. CARDIOVASCULAR: Regular rate and rhythm without murmurs, gallops, or rubs. RESPIRATORY: Decreased breath sounds but clear to auscultation. No wheezes, rales, or rhonchi. GASTROINTESTINAL: Abdomen soft, non-tender, nondistended. No hepato-splenomegaly , or palpable masses. No guarding. MUSCULOSKELETAL: Extremities without clubbing, cyanosis, or edema. Right hip postoperative dressing clean, dry and intact. NEUROLOGICAL: Awake and alert. Able to move all extremities. Motor and sensory grossly intact distally. Normal speech. Medications and IVs Current Medications Medications (Trade) Dose Ordered Sig/[facility] Route Start Time Stop Time Status Last Admin (Betadine 7.5% Scrub) 1 applic ONCE TOPICAL 12/16/16 07:45 12/19/16 07:44 (Cardizem Cd) 180 mg DAILY PO 12/17/16 09:00 12/18/16 08:11 (PROzac) 20 mg DAILY PO 12/17/16 09:00 12/18/16 08:12 (Neurontin) 300 mg HS PO 12/16/16 21:00 12/17/16 22:04 (Amaryl) 4 mg BIDAC PO 12/16/16 16:00 12/18/16 08:12 (Imdur) 60 mg HS PO 12/16/16 21:00 12/17/16 22:03 (Cozaar) 50 mg DAILY PO 12/17/16 09:00 12/18/16 08:12 (Glucophage) 1,000 mg BIDPC PO 12/16/16 18:00 12/18/16 08:11 (Robaxin) 500 mg DAILY PO 12/17/16 09:00 12/17/16 08:44 (Restoril) 15 mg HS PRN PO 12/16/16 21:00 12/18/16 00:07 (Ambien) 10 mg HS PRN PO 12/16/16 21:00 12/17/16 22:03 (Protonix) 20 mg DAILY PRN PO 12/16/16 15:00 Atorvastatin Calcium 20 mg 20 mg HS PO 12/16/16 21:00 12/17/16 22:04 (NS 1000 ml Inj) 1,000 ml @ 100 mls/hr Q10H IV 12/16/16 11:40 12/16/16 21:40 (NS Flush) 2 ml UNSCH PRN IVF 12/16/16 11:45 (NS Flush) 2 ml BID IVF 12/16/16 21:00 12/18/16 09:00 (Lovenox Inj) 40 mg Q24H SQ 12/17/16 11:00 12/26/16 11:01 12/17/16 11:38 (Theragran M Tab) 1 tab BID PO 12/17/16 21:00 02/15/17 20:59 12/18/16 08:12 (Zofran Inj) 4 mg Q6H PRN IVP 12/16/16 11:45 12/16/16 15:05 (Colace) 100 mg BID PO 12/17/16 21:00 12/18/16 08:11 (Mag-Al Plus Susp Liq) 30 ml Q6H PRN PO 12/16/16 11:45 (Dulcolax Supp) 10 mg DAILY PRN RECTAL 12/16/16 11:45 (Milk Of Magnesia Liq) 30 ml DAILY PRN PO 12/16/16 11:45 12/18/16 08:13 (Narcan Inj) 0.4 mg UNSCH PRN IV 12/16/16 11:45 (Benadryl Inj) 25 mg Q6H PRN IV 12/16/16 11:45 (Morphine Inj) 2 mg Q3H PRN IV PUSH 12/16/16 11:45 12/17/16 19:52 (Percocet 10-325 Mg) 1 tab Q4H PRN PO 12/16/16 11:45 12/18/16 08:13 (Percocet 10-325 Mg) 2 tab Q4H PRN PO 12/16/16 11:45 12/16/16 17:20 (D50w (Vial) Inj) 50 ml UNSCH PRN IV 12/16/16 13:00 (Glucagon Inj) 1 mg UNSCH PRN OTHER 12/16/16 13:00 (Lidoderm 5% Patch.12 Hr) 1 patch DAILY T-DERMAL 12/18/16 09:00 Miscellaneous Information 1 Q24H T-DERMAL 12/18/16 21:00 A/P Assessment and Plan 71-year-old female presenting with chronic right hip pain affecting her activities of daily living. She has osteoarthritis and failed attempts at outpatient therapy and underwent a right total hip replacement performed by Dr. Morfin who requested consultation to evaluate and manage multiple medical conditions. Anesthesia records reviewed. Patient is hemodynamically stable. In PACU, patient had an emesis as well as wheezing and chest tightness. She was treated with a breathing treatment and stat chest x-ray was obtained which was unremarkable. We will continue postoperative care to include physical therapy, wound care, incentive spirometry, DVT prophylaxis with Lovenox ( followed by aspirin 325 mg) and pain management with Percocet and IV morphine. Osteoarthritis of the right hip failed outpatient therapy status post right total hip replacement Pain management with Percocet and IV morphine - discussed with patient taking her Percocet more frequently so her pain level doesn't escalate to the point its difficult to control Continue with PT/eval - ambulated 18ft with PT trial of Lidoderm patch for burning right leg pain Leukocytosis improving 16 --> 15.2 Suspect reactive Obtain UA Patient is afebrile A.m. labs to monitor trend Postoperative anemia of acute blood loss Hemoglobin slight trend up A.m. labs to monitor trend Hypertension. Stable Tachycardia, improved Continue patient's home dose of diltiazem 180 mg daily, Cozaar 50 mg daily and Imdur 60mg daily Monitor vital signs CAD. Stable Previous cardiac stent implantation 12/04/16 echocardiogram revealing normal systolic function with EF of 55-60% and myocardial perfusion study showing fixed defect with no reversible ischemia No complaints of chest pain at this time Will resume patient's aspirin once cleared by surgery Diabetes mellitus Continue patient's home medication of metformin 1000 milligrams twice a day and Amaryl 4mg BID BS 136 this am Accu-Chek Insulin sliding scale Diabetic diet COPD. Stable Continue patient's home dose of Pulmicort neb daily Monitor respiratory status - 98% on RA Dyslipidemia Continue patient's home dose of Lipitor 20 mg nightly Restless leg syndrome Continue patient's home dose of gabapentin 300 mg daily Depression Continue patient's home dose of Prozac 20 mg daily GERD Continue patient's home dose of Omeprazole 20 mg daily Constipation Jelly-Colace BID Miralax daily monitor for BM DVT prophylaxis Lovenox 40 mg subcutaneous. Patient is to begin aspirin 325 mg daily after Lovenox is completed. Discussed with patient, nursing staff and Heena Earl Dec 18, 2016 09:54
[2016-12-18 12:59] LABS: BACTERIA, URINE RARE /hpf; BLOOD, URINE NEG (NEG); COMMENT (UR) CULT NOT INDICATED; CULTURE IF INDICATED CULT NOT INDICATED; GLUCOSE,URINE NEG (NEG); KETONE, URINE NEG (NEG); NITRITE,URINE NEG (NEG); PH, URINE 5.5 (5.0-8.5); SQUAMOUS EPITHELIAL CELL URINE 1 /hpf (0-5); URINE COLOR YELLOW (YELLW/STRAW)
--- NOTE | 2016-12-18 15:19 | PD.ORT.PN ---
Subjective Subjective Remarks feeling better Objective Vitals Vital Signs Date Time Temp Pulse Resp B/P Pulse Ox O2 Delivery O2 Flow Rate FiO2 12/18/16 13:55 16 12/18/16 12:13 98 21 12/18/16 11:55 96.9 86 20 115/74 95 12/18/16 09:21 16 12/18/16 08:10 96.7 95 20 138/76 98 12/18/16 02:22 Room Air 12/18/16 00:16 97.3 100 17 127/68 96 12/17/16 20:15 98.3 110 17 142/71 95 12/17/16 19:57 18 12/17/16 16:00 97.7 100 18 119/61 96 I/O 12/17/16 12/17/16 12/17/16 12/18/16 12/18/16 12/18/16 07:00 15:00 23:00 07:00 15:00 23:00 Intake Total 970 ml 600 ml 360 ml 120 ml Output Total 300 ml Balance 670 ml 600 ml 360 ml 120 ml Intake Oral 120 ml 600 ml 360 ml 120 ml IV Total 850 ml Output Urine Total 300 ml # Voids 4 2 1 # Bowel Movements 0 0 0 0 Result Diagram: 12/18/16 0704 12/18/16 0704 Imaging Last 24 hours Impressions Hip and Pelvis X-Ray 12/16/16 1140 Signed Impressions: Service Date/Time: Friday, December 16, 2016 12:27 - CONCLUSION: Anatomic alignment. Adam Vásquez MD Procedures Right SANDIP Objective Remarks Dressing changed today with no drainage. Incision is well approximated. No redness or s/s of infection. mild swelling, EHL/TA/G intact. 2+ pedal pulse. No calf swelling or tenderness. + SILT. Assessment & Plan Assessment and Plan POD #1: Right SANDIP 1. WBAT RLE 2. Lovenox followed by ASA for DVT prophylaxis 3. Ice to the right hip PRN 4. Anticipatory discharge home with home health on Wednesday. 5. F/U with Dr. Morfin or BRENDAN Mosley in the office as previously scheduled. Ceasar Morfin MD Dec 18, 2016 15:19
[2016-12-18] MEDS ORDERED: REMOVE OLD LIDOCAINE PATCH T-DERMAL SCH (21:00)
[2016-12-18] MEDS: DOCUSATE SODIUM 50 MG/SENNA 8.6 MG TAB PO SCH (21:12)
[2016-12-18] MEDS: ATORVASTATIN 20 MG TAB PO SCH (21:12)
[2016-12-18] MEDS: ISOSORBIDE MONONITRATE 60 MG TAB PO SCH (21:12)
[2016-12-18] MEDS: GABAPENTIN 300 MG CAP PO SCH (21:13)
[2016-12-18] MEDS: MORPHINE SULFATE 4 MG/ML INJ IV PUSH PRN (21:14)
[2016-12-18] MEDS: ZOLPIDEM TARTRATE 10 MG TAB PO PRN (23:26)
[2016-12-19] VITALS (7 sets, daily range): BP systolic 96–148; BP diastolic 51–77; PULSE 84–101; RESP 15–18; TEMP 96.7–99.1; O2SAT 91–99
[2016-12-19] MEDS: MORPHINE SULFATE 4 MG/ML INJ IV PUSH PRN ×3 (05:39→20:46)
[2016-12-19] MEDS: INSULIN ASPART SUPPLEMENTAL SCALE SQ SCH ×4 (06:33→20:45)
[2016-12-19] MEDS: GLIMEPIRIDE 4 MG TAB PO SCH (06:33)
[2016-12-19] MEDS: RESP: BUDESONIDE 0.25 MG/2 ML NEB NEB SCH ×2 (08:00→09:23)
[2016-12-19 08:14] LABS: AUTOMATED NEUTROPHIL # 7.3 TH/MM3 (1.8-7.7); BASOPHIL # 0.1 TH/MM3 (0-0.2); BASOPHIL % 0.8 % (0.0-2.0); EOSINOPHIL # 0.9 TH/MM3 (0-0.4); EOSINOPHIL % 7.6 % (0.0-4.0); HEMATOCRIT 32.1 % (35.0-46.0); HEMO FLAGS DIFF FINAL; LYMPH % 17.8 % (9.0-44.0); MEAN CELL VOLUME 80.1 FL (80.0-100.0); MEAN CORPUSCULAR HEMOGLOBIN 25.6 PG (27.0-34.0); MEAN CORPUSCULAR HGB CONC 31.9 % (32.0-36.0); MONO % 9.7 % (0.0-8.0); NEUT % 64.1 % (16.0-70.0); PLATELET COUNT 355 TH/MM3 (150-450); RED BLOOD COUNT 4.01 MIL/MM3 (4.00-5.30); RED CELL DISTRIBUTION WIDTH 16.8 % (11.6-17.2); WHITE BLOOD COUNT 11.4 TH/MM3 (4.0-11.0)
[2016-12-19] MEDS: DOCUSATE SODIUM 50 MG/SENNA 8.6 MG TAB PO SCH ×2 (08:25→20:45)
[2016-12-19] MEDS: METHOCARBAMOL 500 MG TAB PO SCH (08:25)
[2016-12-19] MEDS: metFORMIN HCL 500 MG TAB PO SCH ×2 (08:25→18:32)
[2016-12-19] MEDS: FLUoxetine HCL 20 MG CAP PO SCH (08:25)
[2016-12-19] MEDS: LOSARTAN 50 MG TAB PO SCH (08:26)
[2016-12-19] MEDS: MULTIVITAMINS/MINERALS THERAPEUTIC TAB PO SCH ×2 (08:26→20:45)
[2016-12-19] MEDS: POLYETHYLENE GLYCOL 17 GM PKG PO SCH (08:27)
[2016-12-19] MEDS: oxyCODONE/ACETAMINOPHEN 10 MG/325 MG TAB PO PRN ×3 (08:27→23:16)
[2016-12-19] MEDS: LIDOCAINE HCL 5% PATCH T-DERMAL SCH (08:28)
[2016-12-19] MEDS: SODIUM CHLORIDE 0.9% FLUSH 5 ML FLUSH IVF SCH ×2 (08:29→21:00)
[2016-12-19] MEDS: DILTIAZEM-CD 180 MG CAP ER PO SCH (08:30)
[2016-12-19] MEDS ORDERED: KETOROLAC TROMETHAMINE 60 MG/2 ML (IM) VIAL IM ONE ×2 (08:30→09:45)
--- NOTE | 2016-12-19 09:46 | PD.ORT.PN ---
Subjective Subjective Remarks Patient c/o right hip pain. Nephew at bedside. Objective Vitals Vital Signs Date Time Temp Pulse Resp B/P Pulse Ox O2 Delivery O2 Flow Rate FiO2 12/19/16 09:27 92 21 12/19/16 08:00 99.1 101 18 115/61 91 12/19/16 05:46 18 12/19/16 02:53 Room Air 12/19/16 00:26 18 12/19/16 00:00 97.4 90 15 114/55 94 12/18/16 19:00 97.2 90 17 119/55 93 12/18/16 18:09 94 21 12/18/16 16:36 97.1 91 20 114/58 94 12/18/16 13:55 16 12/18/16 12:13 98 21 12/18/16 11:55 96.9 86 20 115/74 95 I/O 12/18/16 12/18/16 12/18/16 12/19/16 12/19/16 12/19/16 07:00 15:00 23:00 07:00 15:00 23:00 Intake Total 120 ml 240 ml 480 ml 480 ml Balance 120 ml 240 ml 480 ml 480 ml Intake Oral 120 ml 240 ml 480 ml 480 ml # Voids 1 4 2 3 # Bowel Movements 0 1 0 0 Result Diagram: 12/19/16 0736 12/18/16 0704 Imaging Last 24 hours Impressions Hip and Pelvis X-Ray 12/16/16 1140 Signed Impressions: Service Date/Time: Friday, December 16, 2016 12:27 - CONCLUSION: Anatomic alignment. Adam Vásquez MD Procedures Right SANDIP Objective Remarks Dressing C/D/I. Incision is well approximated. No redness or s/s of infection. mild swelling, EHL/TA/G intact. 2+ pedal pulse. No calf swelling or tenderness. + SILT. Assessment & Plan Assessment and Plan POD #2: Right SANDIP 1. WBAT RLE 2. Lovenox followed by ASA for DVT prophylaxis 3. Ice to the right hip PRN 4. Anticipatory discharge to SNF Wednesday. 5. F/U with Dr. Morfin or BRENDAN Mosley in the office as previously scheduled. Darvin Hewitt Dec 19, 2016 09:46
[2016-12-19] MEDS ORDERED: KETOROLAC TROMETHAMINE 30 MG/ML (IVP) VIAL IV PUSH ONE (10:00)
[2016-12-19] MEDS: SODIUM CHLOR 0.9% 1000 ML INJ 1,000 ML IV SCH (10:26)
[2016-12-19] MEDS: ENOXAPARIN SODIUM 40 MG/0.4 ML SYRINGE SQ SCH (11:39)
[2016-12-19] MEDS ORDERED: AMBI10TA PO (16:25)
[2016-12-19] MEDS ORDERED: KETOROLAC TROMETHAMINE 60 MG/2 ML (IM) VIAL IM SCH (18:00)
[2016-12-19] MEDS ORDERED: NAPROXEN 500 MG TAB PO ONE (19:00)
[2016-12-19] MEDS: ISOSORBIDE MONONITRATE 60 MG TAB PO SCH (20:45)
[2016-12-19] MEDS: TEMAZEPAM 15 MG CAP PO PRN (20:45)
[2016-12-19] MEDS: GABAPENTIN 300 MG CAP PO SCH (20:45)
[2016-12-19] MEDS: ATORVASTATIN 20 MG TAB PO SCH (20:45)
[2016-12-20] MEDS: SODIUM CHLOR 0.9% 1000 ML INJ 1,000 ML IV SCH ×2 (05:40→07:41)
[2016-12-20] MEDS: INSULIN ASPART SUPPLEMENTAL SCALE SQ SCH ×3 (06:10→15:56)
[2016-12-20] MEDS: oxyCODONE/ACETAMINOPHEN 10 MG/325 MG TAB PO PRN ×3 (06:11→15:59)
[2016-12-20] MEDS: metFORMIN HCL 500 MG TAB PO SCH ×2 (07:22→15:59)
[2016-12-20] MEDS: MULTIVITAMINS/MINERALS THERAPEUTIC TAB PO SCH (07:22)
[2016-12-20] MEDS: DOCUSATE SODIUM 50 MG/SENNA 8.6 MG TAB PO SCH (07:22)
[2016-12-20] MEDS: FLUoxetine HCL 20 MG CAP PO SCH (07:22)
[2016-12-20] MEDS: METHOCARBAMOL 500 MG TAB PO SCH (07:22)
[2016-12-20] MEDS: DILTIAZEM-CD 180 MG CAP ER PO SCH (07:22)
[2016-12-20] MEDS: LOSARTAN 50 MG TAB PO SCH (07:22)
[2016-12-20] MEDS: MAGNESIUM HYDROXIDE SUSP 30 ML CUP PO PRN (07:23)
[2016-12-20] MEDS: POLYETHYLENE GLYCOL 17 GM PKG PO SCH (07:23)
[2016-12-20] MEDS: SODIUM CHLORIDE 0.9% FLUSH 5 ML FLUSH IVF SCH (07:26)
[2016-12-20 07:48] VITALS: BP 114/59; PULSE 93; RESP 18; TEMP 97.2; O2SAT 93
[2016-12-20] MEDS: RESP: BUDESONIDE 0.25 MG/2 ML NEB NEB SCH (08:00)
[2016-12-20] MEDS ORDERED: NAPROXEN 500 MG TAB PO SCH (09:00)
[2016-12-20] MEDS: ONDANSETRON HCL 4 MG/2 ML VIAL IVP PRN ×2 (09:50→15:59)
[2016-12-20] MEDS: ENOXAPARIN SODIUM 40 MG/0.4 ML SYRINGE SQ SCH (11:20)
[2016-12-20 12:00] VITALS: BP 100/52; PULSE 90; RESP 18; TEMP 96; O2SAT 94
--- NOTE | 2016-12-20 14:01 | PD.ORT.PN ---
Subjective Subjective Remarks Patient states feeling better today. OOB sitting in recliner. Family at bedside. Objective Vitals Vital Signs Date Time Temp Pulse Resp B/P (MAP) Pulse Ox O2 Delivery O2 Flow Rate FiO2 12/20/16 07:48 97.2 93 18 114/59 (77) 93 12/20/16 07:00 Room Air 12/19/16 23:40 96.9 96 18 148/77 (100) 99 12/19/16 19:13 98.1 84 18 110/59 (76) 98 12/19/16 16:10 16 12/19/16 16:00 97.4 96 18 148/73 (98) 95 12/19/16 15:30 16 I/O 12/19/16 12/19/16 12/19/16 12/20/16 12/20/16 12/20/16 07:00 15:00 23:00 07:00 15:00 23:00 Intake Total 480 ml 600 ml 360 ml 360 ml Balance 480 ml 600 ml 360 ml 360 ml Intake Oral 480 ml 600 ml 360 ml 360 ml # Voids 3 3 4 2 # Bowel Movements 0 0 0 0 Result Diagram: 12/19/16 0736 12/18/16 0704 Imaging Last 24 hours Impressions Hip and Pelvis X-Ray 12/16/16 1140 Signed Impressions: Service Date/Time: Friday, December 16, 2016 12:27 - CONCLUSION: Anatomic alignment. Adam Vásquez MD Procedures Right SANDIP Objective Remarks dressing C/D/I. calves soft negative elías's NVI Assessment & Plan Assessment and Plan POD #3: Right SANDIP 1. WBAT RLE 2. Lovenox followed by ASA for DVT prophylaxis 3. Ice to the right hip PRN 4. Anticipatory discharge to SNF Wednesday. 5. F/U with Dr. Morfin or BRENDAN Mosley in the office as previously scheduled. 6. Orthopedically stable for discharge Darvin Hewitt Dec 20, 2016 14:01
--- NOTE | 2016-12-20 15:23 | HHI.PR ---
Subjective Remarks Follow-up on patient with osteoarthritis status post right total hip replacement. Patient seen and examined today. She is feeling much better today. Pain better controlled. She denies any acute complaints today. She denies any fever or chills. Williams any chest pain or SOB. Denies any N/V or abdominal pain. She is hoping she can stay one more day and be discharged to home with [facility] in the am. Objective Vitals Vital Signs Date Time Temp Pulse Resp B/P (MAP) Pulse Ox O2 Delivery O2 Flow Rate FiO2 12/20/16 12:00 96.0 90 18 100/52 (68) 94 12/20/16 07:48 97.2 93 18 114/59 (77) 93 12/20/16 07:00 Room Air 12/19/16 23:40 96.9 96 18 148/77 (100) 99 12/19/16 19:13 98.1 84 18 110/59 (76) 98 12/19/16 16:10 16 12/19/16 16:00 97.4 96 18 148/73 (98) 95 12/19/16 15:30 16 I/O 12/19/16 12/19/16 12/19/16 12/20/16 12/20/16 12/20/16 07:00 15:00 23:00 07:00 15:00 23:00 Intake Total 480 ml 600 ml 360 ml 360 ml Balance 480 ml 600 ml 360 ml 360 ml Intake Oral 480 ml 600 ml 360 ml 360 ml # Voids 3 3 4 2 # Bowel Movements 0 0 0 0 Result Diagram: 12/19/16 0736 12/18/16 0704 Imaging Last Impressions Hip and Pelvis X-Ray 12/16/16 1140 Signed Impressions: Service Date/Time: Friday, December 16, 2016 12:27 - CONCLUSION: Anatomic alignment. Adma Vásquez MD Hip X-Ray 12/16/16 0000 Signed Impressions: Service Date/Time: Friday, December 16, 2016 10:24 - CONCLUSION: Anatomic alignment Adam Vásquez MD FACR Chest X-Ray 12/16/16 0000 Signed Impressions: Service Date/Time: Friday, December 16, 2016 12:26 - CONCLUSION: Unaerated otherwise negative. Adam Vásquez MD FACR Objective Remarks GENERAL: This is a well-nourished, well-developed patient, in no apparent distress. Sitting in bedside chair. Awake and alert. Appears comfortable. SKIN: Checks appear flushed. Cool and dry. HEAD: Atraumatic. Normocephalic. EYES: Extraocular motions intact. No scleral icterus. No injection or drainage. ENT: Nose without bleeding or purulent drainage. Airway patent. NECK: Trachea midline. Supple. CARDIOVASCULAR: Regular rate and rhythm without murmurs, gallops, or rubs. RESPIRATORY: Decreased breath sounds but clear to auscultation. No wheezes, rales, or rhonchi. GASTROINTESTINAL: Abdomen soft, non-tender, nondistended. No hepato-splenomegaly , or palpable masses. No guarding. MUSCULOSKELETAL: Extremities without clubbing or cyanosis. Right hip postoperative dressing clean, dry and intact. Trace to 1+ edema noted BLE. NEUROLOGICAL: Awake and alert. Able to move all extremities. Motor and sensory grossly intact distally. Normal speech. Medications and IVs Current Medications Medications (Trade) Dose Ordered Sig/Elysia Route Start Time Stop Time Status Last Admin Clindamycin Phosphate 900 mg/ Sodium Chloride 106 ml @ 212 mls/hr CHEMICAL INSPECTOR IV 12/16/16 07:45 12/16/16 08:45 (Albuterol Neb) 2.5 mg Q4HR NEB PRN NEB 12/16/16 11:45 12/19/16 09:23 (Pulmicort Respule Neb) 0.25 mg DAILY NEB NEB 12/17/16 08:00 12/19/16 09:23 (Cardizem Cd) 180 mg DAILY PO 12/17/16 09:00 12/20/16 07:22 (PROzac) 20 mg DAILY PO 12/17/16 09:00 12/20/16 07:22 (Neurontin) 300 mg HS PO 12/16/16 21:00 12/19/16 20:45 (Amaryl) 4 mg BIDAC PO 12/16/16 16:00 Future Hold 12/19/16 06:33 (Imdur) 60 mg HS PO 12/16/16 21:00 12/19/16 20:45 (Cozaar) 50 mg DAILY PO 12/17/16 09:00 12/20/16 07:22 (Glucophage) 1,000 mg BIDPC PO 12/16/16 18:00 12/20/16 07:22 (Robaxin) 500 mg DAILY PO 12/17/16 09:00 12/20/16 07:22 (Restoril) 15 mg HS PRN PO 12/16/16 21:00 12/19/16 20:45 (Ambien) 10 mg HS PRN PO 12/16/16 21:00 12/18/16 23:26 (Protonix) 20 mg DAILY PRN PO 12/16/16 15:00 12/18/16 17:21 (Lipitor) 20 mg HS PO 12/16/16 21:00 12/19/16 20:45 Sodium Chloride 1,000 ml @ 100 mls/hr Q10H IV 12/16/16 11:40 12/19/16 10:26 (NS Flush) 2 ml UNSCH PRN IVF 12/16/16 11:45 (NS Flush) 2 ml BID IVF 12/16/16 21:00 12/20/16 07:26 (Lovenox Inj) 40 mg Q24H SQ 12/17/16 11:00 12/26/16 11:01 12/20/16 11:20 (Theragran M Tab) 1 tab BID PO 12/17/16 21:00 02/15/17 20:59 12/20/16 07:22 (Zofran Inj) 4 mg Q6H PRN IVP 12/16/16 11:45 12/20/16 09:50 (Mag-Al Plus Susp Liq) 30 ml Q6H PRN PO 12/16/16 11:45 (Dulcolax Supp) 10 mg DAILY PRN RECTAL 12/16/16 11:45 (Milk Of Magnesia Liq) 30 ml DAILY PRN PO 12/16/16 11:45 12/18/16 08:13 (Narcan Inj) 0.4 mg UNSCH PRN IV 12/16/16 11:45 (Benadryl Inj) 25 mg Q6H PRN IV 12/16/16 11:45 (Morphine Inj) 2 mg Q3H PRN IV PUSH 12/16/16 11:45 12/19/16 20:46 (Percocet 10-325 Mg) 1 tab Q4H PRN PO 12/16/16 11:45 12/20/16 11:20 (Percocet 10-325 Mg) 2 tab Q4H PRN PO 12/16/16 11:45 12/19/16 23:16 (D50w (Vial) Inj) 50 ml UNSCH PRN IV 12/16/16 13:00 (Glucagon Inj) 1 mg UNSCH PRN OTHER 12/16/16 13:00 (NovoLOG SUPPLEMENTAL SCALE) 1 ACHS SLIDING SCALE SQ 12/16/16 16:00 12/20/16 11:20 (Miralax) 17 gm DAILY PO 12/19/16 09:00 12/19/16 08:27 (Jelly-Colace) 1 tab BID PO 12/18/16 21:00 12/20/16 07:22 (Naprosyn) 500 mg DAILY PO 12/20/16 09:00 12/20/16 07:26 A/P Assessment and Plan 71-year-old female presenting with chronic right hip pain affecting her activities of daily living. She has osteoarthritis and failed attempts at outpatient therapy and underwent a right total hip replacement performed by Dr. Morfin who requested consultation to evaluate and manage multiple medical conditions. Anesthesia records reviewed. Patient is hemodynamically stable. In PACU, patient had an emesis as well as wheezing and chest tightness. She was treated with a breathing treatment and stat chest x-ray was obtained which was unremarkable. We will continue postoperative care to include physical therapy, wound care, incentive spirometry, DVT prophylaxis with Lovenox ( followed by aspirin 325 mg) and pain management with Percocet and IV morphine. Osteoarthritis of the right hip failed outpatient therapy status post right total hip replacement Continue pain management Continue with PT/eval - continue participation which is limited secondary to right groin pain. Continue naproxen 500 mg daily Leukocytosis Trending down to near normal Suspect reactive UA unremarkable Patient is afebrile Postoperative anemia of acute blood loss stable monitor as indicated Hypertension. Stable Tachycardia, improved Continue patient's home dose of diltiazem 180 mg daily, Cozaar 50 mg daily and Imdur 60mg daily Monitor vital signs CAD. Stable Previous cardiac stent implantation 12/04/16 echocardiogram revealing normal systolic function with EF of 55-60% and myocardial perfusion study showing fixed defect with no reversible ischemia No complaints of chest pain at this time Will resume patient's aspirin once cleared by surgery Diabetes mellitus Continue patient's home medication of metformin 1000 milligrams twice a day BS 105 this am Continue to hold patient's home Amaryl Accu-Chek Insulin sliding scale Diabetic diet COPD. Stable Continue patient's home dose of Pulmicort neb daily Monitor respiratory status - 98% on RA Dyslipidemia Continue patient's home dose of Lipitor 20 mg nightly Restless leg syndrome Continue patient's home dose of gabapentin 300 mg daily Depression Continue patient's home dose of Prozac 20 mg daily GERD Continue patient's home dose of Omeprazole 20 mg daily Constipation Jelly-Colace BID Miralax daily monitor for BM DVT prophylaxis Lovenox 40 mg subcutaneous. Patient is to begin aspirin 325 mg daily after Lovenox is completed. Discussed with patient, nursing staff and Heena Earl Dec 20, 2016 15:23
--- NOTE | 2016-12-20 15:31 | HHI.PR ---
Subjective Remarks This note intended as documentation for encounter on 12/19/16, written on 12/20/16 Follow-up on patient with osteoarthritis status post right total hip replacement. Patient seen and examined today. Patient complaining of severe burning right hip pain. Unable to get any sleep last night as a result. She denies any fever or chills. Denies any chest pain or SOB. Denies any N/V or abdominal pain. (+)BM yesterday. Objective Vitals Vital Signs Date Time Temp Pulse Resp B/P (MAP) Pulse Ox O2 Delivery O2 Flow Rate FiO2 12/20/16 12:00 96.0 90 18 100/52 (68) 94 12/20/16 07:48 97.2 93 18 114/59 (77) 93 12/20/16 07:00 Room Air 12/19/16 23:40 96.9 96 18 148/77 (100) 99 12/19/16 19:13 98.1 84 18 110/59 (76) 98 12/19/16 16:10 16 12/19/16 16:00 97.4 96 18 148/73 (98) 95 12/19/16 15:30 16 I/O 12/19/16 12/19/16 12/19/16 12/20/16 12/20/16 12/20/16 07:00 15:00 23:00 07:00 15:00 23:00 Intake Total 480 ml 600 ml 360 ml 360 ml Balance 480 ml 600 ml 360 ml 360 ml Intake Oral 480 ml 600 ml 360 ml 360 ml # Voids 3 3 4 2 # Bowel Movements 0 0 0 0 Result Diagram: 12/19/16 0736 12/18/16 0704 Imaging Last Impressions Hip and Pelvis X-Ray 12/16/16 1140 Signed Impressions: Service Date/Time: Friday, December 16, 2016 12:27 - CONCLUSION: Anatomic alignment. Adam Vásquez MD Hip X-Ray 12/16/16 0000 Signed Impressions: Service Date/Time: Friday, December 16, 2016 10:24 - CONCLUSION: Anatomic alignment Adam Vásquez MD FACR Chest X-Ray 12/16/16 0000 Signed Impressions: Service Date/Time: Friday, December 16, 2016 12:26 - CONCLUSION: Unaerated otherwise negative. Adam Vásquez MD FACR Objective Remarks GENERAL: This is a well-nourished, well-developed patient, in no apparent distress. Sitting in bedside chair. Awake and alert. Tearful, upset. SKIN: No rash. Cool and dry. HEAD: Atraumatic. Normocephalic. EYES: Extraocular motions intact. No scleral icterus. No injection or drainage. ENT: Nose without bleeding or purulent drainage. Airway patent. NECK: Trachea midline. Supple. CARDIOVASCULAR: Regular rate and rhythm without murmurs, gallops, or rubs. RESPIRATORY: Decreased breath sounds but clear to auscultation. No wheezes, rales, or rhonchi. GASTROINTESTINAL: Abdomen soft, non-tender, nondistended. No hepato-splenomegaly , or palpable masses. No guarding. MUSCULOSKELETAL: Extremities without clubbing or cyanosis. Right hip postoperative dressing clean, dry and intact. NEUROLOGICAL: Awake and alert. Able to move all extremities. Motor and sensory grossly intact distally. Normal speech. Medications and IVs Current Medications Medications (Trade) Dose Ordered Sig/Elysia Route Start Time Stop Time Status Last Admin Clindamycin Phosphate 900 mg/ Sodium Chloride 106 ml @ 212 mls/hr GEAR LAPPING MACHINE OPERATOR IV 12/16/16 07:45 12/16/16 08:45 (Albuterol Neb) 2.5 mg Q4HR NEB PRN NEB 12/16/16 11:45 12/19/16 09:23 (Pulmicort Respule Neb) 0.25 mg DAILY NEB NEB 12/17/16 08:00 12/19/16 09:23 (Cardizem Cd) 180 mg DAILY PO 12/17/16 09:00 12/20/16 07:22 (PROzac) 20 mg DAILY PO 12/17/16 09:00 12/20/16 07:22 (Neurontin) 300 mg HS PO 12/16/16 21:00 12/19/16 20:45 (Amaryl) 4 mg BIDAC PO 12/16/16 16:00 Future Hold 12/19/16 06:33 (Imdur) 60 mg HS PO 12/16/16 21:00 12/19/16 20:45 (Cozaar) 50 mg DAILY PO 12/17/16 09:00 12/20/16 07:22 (Glucophage) 1,000 mg BIDPC PO 12/16/16 18:00 12/20/16 07:22 (Robaxin) 500 mg DAILY PO 12/17/16 09:00 12/20/16 07:22 (Restoril) 15 mg HS PRN PO 12/16/16 21:00 12/19/16 20:45 (Ambien) 10 mg HS PRN PO 12/16/16 21:00 12/18/16 23:26 (Protonix) 20 mg DAILY PRN PO 12/16/16 15:00 12/18/16 17:21 (Lipitor) 20 mg HS PO 12/16/16 21:00 12/19/16 20:45 Sodium Chloride 1,000 ml @ 100 mls/hr Q10H IV 12/16/16 11:40 12/19/16 10:26 (NS Flush) 2 ml UNSCH PRN IVF 12/16/16 11:45 (NS Flush) 2 ml BID IVF 12/16/16 21:00 12/20/16 07:26 (Lovenox Inj) 40 mg Q24H SQ 12/17/16 11:00 12/26/16 11:01 12/20/16 11:20 (Theragran M Tab) 1 tab BID PO 12/17/16 21:00 02/15/17 20:59 12/20/16 07:22 (Zofran Inj) 4 mg Q6H PRN IVP 12/16/16 11:45 12/20/16 09:50 (Mag-Al Plus Susp Liq) 30 ml Q6H PRN PO 12/16/16 11:45 (Dulcolax Supp) 10 mg DAILY PRN RECTAL 12/16/16 11:45 (Milk Of Magnesia Liq) 30 ml DAILY PRN PO 12/16/16 11:45 12/18/16 08:13 (Narcan Inj) 0.4 mg UNSCH PRN IV 12/16/16 11:45 (Benadryl Inj) 25 mg Q6H PRN IV 12/16/16 11:45 (Morphine Inj) 2 mg Q3H PRN IV PUSH 12/16/16 11:45 12/19/16 20:46 (Percocet 10-325 Mg) 1 tab Q4H PRN PO 12/16/16 11:45 12/20/16 11:20 (Percocet 10-325 Mg) 2 tab Q4H PRN PO 12/16/16 11:45 12/19/16 23:16 (D50w (Vial) Inj) 50 ml UNSCH PRN IV 12/16/16 13:00 (Glucagon Inj) 1 mg UNSCH PRN OTHER 12/16/16 13:00 (NovoLOG SUPPLEMENTAL SCALE) 1 ACHS SLIDING SCALE SQ 12/16/16 16:00 12/20/16 11:20 (Miralax) 17 gm DAILY PO 12/19/16 09:00 12/19/16 08:27 (Jelly-Colace) 1 tab BID PO 12/18/16 21:00 12/20/16 07:22 (Naprosyn) 500 mg DAILY PO 12/20/16 09:00 12/20/16 07:26 A/P Assessment and Plan 71-year-old female presenting with chronic right hip pain affecting her activities of daily living. She has osteoarthritis and failed attempts at outpatient therapy and underwent a right total hip replacement performed by Dr. Morfin who requested consultation to evaluate and manage multiple medical conditions. Anesthesia records reviewed. Patient is hemodynamically stable. In PACU, patient had an emesis as well as wheezing and chest tightness. She was treated with a breathing treatment and stat chest x-ray was obtained which was unremarkable. We will continue postoperative care to include physical therapy, wound care, incentive spirometry, DVT prophylaxis with Lovenox ( followed by aspirin 325 mg) and pain management with Percocet and IV morphine. Osteoarthritis of the right hip failed outpatient therapy status post right total hip replacement Poorly controlled postoperative pain. Toradol 30mg once. Begin Naproxen 500mg daily. Continue with PT/eval - continue participation. Leukocytosis Trending down to near normal Suspect reactive UA unremarkable Patient is afebrile Postoperative anemia of acute blood loss stable monitor as indicated Hypertension. Stable Tachycardia, improved Continue patient's home dose of diltiazem 180 mg daily, Cozaar 50 mg daily and Imdur 60mg daily Monitor vital signs CAD. Stable Previous cardiac stent implantation 12/04/16 echocardiogram revealing normal systolic function with EF of 55-60% and myocardial perfusion study showing fixed defect with no reversible ischemia No complaints of chest pain at this time Will resume patient's aspirin once cleared by surgery Diabetes mellitus Continue patient's home medication of metformin 1000 milligrams twice a day BS 86 this am Hold patient's home Amaryl Accu-Chek Insulin sliding scale Diabetic diet COPD. Stable Continue patient's home dose of Pulmicort neb daily Monitor respiratory status Dyslipidemia Continue patient's home dose of Lipitor 20 mg nightly Restless leg syndrome Continue patient's home dose of gabapentin 300 mg daily Depression Continue patient's home dose of Prozac 20 mg daily GERD Continue patient's home dose of Omeprazole 20 mg daily Constipation Jelly-Colace BID Miralax daily monitor for BM DVT prophylaxis Lovenox 40 mg subcutaneous. Patient is to begin aspirin 325 mg daily after Lovenox is completed. Discussed with patient, nursing staff and Heena Earl Dec 20, 2016 15:31
--- NOTE | 2016-12-20 15:44 | RADRPT ---
EXAM DATE/TIME: 12/20/2016 15:22 [facility] COMPARISON: CHEST SINGLE AP, December 16, 2016, 12:26. INDICATIONS : Congestion, short of breath. MEDICAL HISTORY : Hypertension. Chronic obstructive pulmonary disease. Diabetes mellitus type II. SURGICAL HISTORY : None. ENCOUNTER: Subsequent ACUITY: 4 - 6 days PAIN SCORE: 0/10 LOCATION: Bilateral chest FINDINGS: The lungs are clear without infiltrate, nodule, or mass except for slight left lung base atelectasis. There is no appreciable pleural effusion for technique. Heart and mediastinum are unremarkable. Th ere are atherosclerotic calcifications of the aorta due to chronic atherosclerotic disease. CONCLUSION: Slight left lung base linear atelectasis. John Solomon MD on December 20, 2016 at 15:42 Board Certified Radiologist. This report was verified electronically.
--- NOTE | 2016-12-21 08:48 | HHI.DS ---
Discharge Summary Admission Date Dec 16, 2016 at 07:05 Discharge Date: Dec 20, 2016 Admitting Diagnosis Osteoarthritis of the RIGHT hip Status post RIGHT total hip replacement Diagnosis: (1) Osteoarthritis of right hip Diagnosis: Principal ICD Codes: M16.11 - Unilateral primary osteoarthritis, right hip Status: Acute (2) Status post total hip replacement, right Diagnosis: Principal ICD Codes: Z96.641 - Presence of right artificial hip joint Status: Acute Procedures Right SANDIP Brief History This is a 71 year old female patient with severe osteoarthritis of the RIGHT hip CBC/BMP: 12/19/16 0736 12/18/16 0704 Significant Findings Laboratory Tests Test 12/18/16 12:00 12/19/16 07:36 Urine Leukocyte Esterase MOD (NEG) Urine Bacteria RARE /hpf (NONE) White Blood Count 11.4 TH/MM3 (4.0-11.0) Hemoglobin 10.3 GM/DL (11.6-15.3) Hematocrit 32.1 % (35.0-46.0) Mean Corpuscular Hemoglobin 25.6 PG (27.0-34.0) Mean Corpuscular Hemoglobin Concent 31.9 % (32.0-36.0) Monocytes (%) (Auto) 9.7 % (0.0-8.0) Eosinophils (%) (Auto) 7.6 % (0.0-4.0) Monocytes # (Auto) 1.1 TH/MM3 (0-0.9) Eosinophils # (Auto) 0.9 TH/MM3 (0-0.4) PE at Discharge dressing C/D/I. calves soft negative elías's NVI Hospital Course The patient was admitted to the hospital for severe osteoarthritis of the RIGHT hip to have a RIGHT total hip arthroplasty. The patient's surgery went well without complication. The patient is weightbearing as tolerated on the RIGHT lower extremity. The patient was placed on Lovenox followed by aspirin for DVT prophylaxis. The patient will be discharged to a rehabilitation facility and will follow-up as previously scheduled with Dr. Morfin or BRENDAN Mosley. Pt Condition on Discharge: Stable Discharge Disposition: Disch w/ Home Health Serv Discharge Instructions Diet Instructions: Diabetic Diet Activities You Can Perform: Weight Bearing as Best Activities to Avoid: Strenuous Activity Follow up Referrals: Orthopedics with Ceasar Morfin MD [facility] with NURSE BODY WELDER - [phone] New Medications: Aspirin (Aspirin) 325 Mg Tab 325 MG PO DAILY for Prevent Blood Clot, #30 TAB 0 Refills Start Aspirin after Lovenox is completed. Commode 3-in-1 (Commode 3-in-1) 1 Mis Mis 1 EA .ROUTE DIRECTED, #1 EA 0 Refills Enoxaparin Inj (Lovenox Inj) 40 Mg/0.4 Ml Syr 40 MG SQ DAILY for Blood Clot Prevention, #10 SYRINGE 0 Refills Start Aspirin after Lovenox is completed. Ondansetron (Zofran) 4 Mg Tab 4 MG PO Q12HR PRN for NAUSEA OR VOMITING, #40 TAB 0 Refills Oxycodone-Acetaminophen (Percocet) 10-325 mg Tab 1-2 TAB PO Q4H PRN for PAIN, #60 TAB 0 Refills Walker with Front Wheels (Walker with Front Wheels) 1 Mis Mis 1 EA .ROUTE DIRECTED, #1 EA 0 Refills Zolpidem (Ambien) 10 Mg Tab 10 MG PO HS PRN for INSOMNIA, #30 TAB 0 Refills Continued Medications: Albuterol Neb (Albuterol Neb) 2.5 Mg/3 Ml Neb 2.5 MG NEB Q4HR NEB PRN for SHORTNESS OF BREATH, #60 NEBULE 0 Refills Budesonide Neb (Pulmicort Respules) 0.25 Mg/2 Ml Neb 0.25 MG NEB DAILY NEB for Breathing Treatment, #30 NEBULE 0 Refills Calcium Carbonate-Cholecalciferol (Calcium 500 +D) 500-400 Mg-Unit Tab 1 TAB PO BID for Calcium Supplement, TAB 0 Refills Cholecalciferol (Vitamin D3) 1,000 Unit Tab 1000 UNITS PO DAILY for Nutritional Supplement, #1 BOTTLE 0 Refills Diltiazem CD 24 HR (Cardizem CD 24 HR) 180 Mg Caper 180 MG PO DAILY for Blood Pressure Management, #30 CAP 0 Refills Fluoxetine (Prozac) 20 Mg Cap 20 MG PO DAILY for Depression Control, #30 CAP 0 Refills Gabapentin (Gabapentin) 300 Mg Cap 300 MG PO HS for RESTLESS LEG, #30 CAP 0 Refills Glimepiride (Glimepiride) 4 Mg Tab 4 MG PO BIDAC for Blood Sugar Management, #60 TAB 0 Refills Glucosamine (Glucosamine) 1,500 Mg Tab 1500 MG PO BID for Herbal Supplements, TAB 0 Refills Isosorbide Mononitrate ER (Isosorbide Mononitrate ER) 60 Mg Tab 60 MG PO HS for Prevent Chest Pain, #30 TAB 0 Refills Losartan (Losartan) 50 Mg Tab 50 MG PO DAILY for Blood Pressure Management, #30 TAB 0 Refills Metformin (Metformin) 1,000 Mg Tab 1000 MG PO BIDPC for Blood Sugar Management, #60 TAB 0 Refills With meals Methocarbamol (Methocarbamol) 500 Mg Tab 500 MG PO DAILY for Muscle Spasm, #90 TAB 0 Refills TAKE 1/2 TAB @ HS Omeprazole (Omeprazole) 20 Mg Tab 20 MG PO DAILY PRN for HEARTBURN, #30 TAB 0 Refills Rosuvastatin (Crestor) 10 Mg Tab 10 MG PO HS for Cholesterol Management, #30 TAB 0 Refills Zolpidem (Ambien) 10 Mg Tab 10 MG PO HS PRN for INSOMNIA, TAB 0 Refills Discontinued Medications: Hydrocodone-Acetaminophen (Lortab) 10-325 Mg Tab 1 TAB PO Q6HR PRN for PAIN, TAB 0 Refills Meloxicam (Meloxicam) 15 Mg Tab 15 MG PO DAILY for Arthritis Pain, #30 TAB 0 Refills Temazepam (Temazepam) 15 Mg Cap 15 MG PO HS PRN for INSOMNIA, #30 CAP 0 Refills Esteban Simons Dec 21, 2016 08:48
== END 2016-12-20 17:01 | DRG 470 ==
LOC: HSDI 12-16 07:05 → N06B 12-16 18:43
PROVIDERS: ADMIT Orthopaedic Surgery; ATTEND Orthopaedic Surgery
PROC: 0SR902A Replacement of Right Hip Joint with Metal on Polyethylene Synthetic Substitute, Uncemented, Open Approach (ICD-10-PCS; principal; 2016-12-16 09:49)
DX: M16.11 Unilateral primary osteoarthritis, right hip (principal); J44.9 Chronic obstructive pulmonary disease, unspecified; E11.9 Type 2 diabetes mellitus without complications; D62 Acute posthemorrhagic anemia; I10 Essential (primary) hypertension; G89.29 Other chronic pain; I25.10 Atherosclerotic heart disease of native coronary artery without angina pectoris; E78.5 Hyperlipidemia, unspecified; G25.81 Restless legs syndrome; F32.9 Major depressive disorder, single episode, unspecified; K21.9 Gastro-esophageal reflux disease without esophagitis; D72.829 Elevated white blood cell count, unspecified; K59.00 Constipation, unspecified; Z79.891 Long term (current) use of opiate analgesic; Z79.84 Long term (current) use of oral hypoglycemic drugs; Z79.899 Other long term (current) drug therapy; Z95.5 Presence of coronary angioplasty implant and graft
CPT/HCPCS: 71010; 73502; 76000; 80048; 81001; 82948; 83735; 85025; 85027; 86850; 86900; 86901; 94150; 94640; 94664; C1776; C9290; J0131; J1100; J1170; J1580; J1650; J1815; J1885; J2250; J2270; J2370; J2405; J2710; J3010; J3370; J7030; J7050; J7120; J7613; J7626

== ENCOUNTER → 2016-12-07 | Outpatient (CLI) | payer MEDICARE, OTHER ==
[~2016-12-07] MED LIST changes: +ASPI325T PO; +COMMODE 3-IN-11 MIS; +ENOX40P SQ; +LOSA25TA PO; +LOSA50TA PO; +PERC10TA27 PO; +WALKER WHEELS/F1 MIS; +ZOFR4TAB PO
[2016-12-07 10:13] LABS: AUTOMATED NEUTROPHIL # 9.9 TH/MM3 (1.8-7.7); BASOPHIL # 0.1 TH/MM3 (0-0.2); BASOPHIL % 0.6 % (0.0-2.0); EOSINOPHIL # 0.5 TH/MM3 (0-0.4); HEMATOCRIT 41.1 % (35.0-46.0); HEMO FLAGS DIFF FINAL; LYMPH % 12.4 % (9.0-44.0); LYMPHOCYTE # 1.6 TH/MM3 (1.0-4.8); MEAN CORPUSCULAR HEMOGLOBIN 25.6 PG (27.0-34.0); MONO % 5.1 % (0.0-8.0); NEUT % 77.9 % (16.0-70.0); PLATELET COUNT 363 TH/MM3 (150-450); RED BLOOD COUNT 5.13 MIL/MM3 (4.00-5.30); RED CELL DISTRIBUTION WIDTH 15.7 % (11.6-17.2); WHITE BLOOD COUNT 12.7 TH/MM3 (4.0-11.0)
[2016-12-07 10:16] LABS: BACTERIA, URINE RARE /hpf; BLOOD, URINE NEG (NEG); GLUCOSE,URINE NEG (NEG); HYALINE CAST, URINE 2 /lpf (RARE); KETONE, URINE NEG (NEG); MUCUS URINE FEW /lpf (OCC); NITRITE,URINE NEG (NEG); PH, URINE 5.5 (5.0-8.5); SQUAMOUS EPITHELIAL CELL URINE 1 /hpf (0-5); URINE COLOR YELLOW (YELLW/STRAW)
[2016-12-07 10:18] LABS: COMMENT (UR) CULT NOT INDICATED; CULTURE IF INDICATED CULT NOT INDICATED
[2016-12-07 10:20] LABS: APTT (PATIENT) 28.1 SEC (24.3-30.1); PROTHROMBIN TIME - PATIENT 11.1 SEC (9.8-11.6)
[2016-12-07 10:29] LABS: ANION GAP 10 MEQ/L (5-15); AST (GOT) 17 U/L (15-37); BICARBONATE 25.6 MEQ/L (21.0-32.0); BLOOD UREA NITROGEN 12 MG/DL (7-18); CHLORIDE 103 MEQ/L (98-107); GLOMERULAR FILTRATION RATE 75 ML/MIN (>89); GLUCOSE,FASTING 167 MG/DL (74-99); POTASSIUM 4.1 MEQ/L (3.5-5.1); SODIUM (NA) 139 MEQ/L (136-145)
[2016-12-07 10:30] LABS: ALT (GPT) 19 U/L (10-53)
[2016-12-07 10:32] LABS: ALKALINE PHOSPHATASE 112 U/L (45-117); TOTAL BILIRUBIN ADULT 0.3 MG/DL (0.2-1.0)
[2016-12-07 10:45] LABS: WESTERGREN SEDIMENTATION RATE 10 mm/hr (0-30)
--- NOTE | 2016-12-07 12:39 | RADRPT ---
EXAM DATE/TIME: 12/07/2016 11:31 [facility] COMPARISON: No previous studies available for comparison. INDICATIONS : Evaluate for pneumonia,pneumothorax and communicable diseases. Pre-op hip MEDICAL HISTORY : Hypertension. Chronic obstructive pulmonary disease. SURGICAL HISTORY : None. ENCOUNTER: Initial ACUITY: 1 day PAIN SCORE: 0/10 LOCATION: chest FINDINGS: PA and lateral views of the chest demonstrate the lungs to be symmetrically aerated without evidence of mass, infiltrate or effusion. Moderate hyperinflation is evident. The cardiomediastinal contours are unremarkable. Osseous structures are intact. CONCLUSION: Moderate hyperinflation otherwise negative. Adam Vásquez MD FACR on December 07, 2016 at 12:37 Board Certified Radiologist. This report was verified electronically.
== END ==
LOC: CPRE 08:53
PROVIDERS: ATTEND Orthopaedic Surgery
DX: M25.50 Pain in unspecified joint (principal); M79.609 Pain in unspecified limb; Z01.812 Encounter for preprocedural laboratory examination; Z01.818 Encounter for other preprocedural examination
CPT/HCPCS: 36415; 71020; 80053; 81001; 85025; 85610; 85652; 85730